=== PATIENT | female | born 1955 | race Caucasian/White ===

== ENCOUNTER 2016-06-23 11:20 | Inpatient (IN) ==
[2016-06-23] MEDS ORDERED: methylPREDNISolone 125 MG/2 ML VIAL IVP ONE (11:26)
[2016-06-23] MEDS ORDERED: Ipratropium/Albuterol Neb 3 ML IH ONE (11:26)
--- NOTE | 2016-06-23 11:31 | Emergency Department Note ---
Disposition Clinical Impression: Hypoxia COPD (chronic obstructive pulmonary disease) Qualifiers: COPD type: COPD with acute exacerbation Qualified Code(s): J44.1 - Chronic obstructive pulmonary disease with (acute) exacerbation Pneumothorax Qualifiers: Pneumothorax type: traumatic Encounter type: initial encounter Qualified Code(s ): S27.0XXA - Traumatic pneumothorax, initial encounter Disposition: Admitted As Inpatient Condition: Fair Time of Disposition: 14:14 SOB HPI - General Chief Complaint: ED Shortness of Breath/Dyspnea Stated Complaint: NANCY Time Seen by Provider: 06/23/16 11:26 Source: EMS Mode of arrival: EMS Limitations: physical limitation Nursing Notes Reviewed: Yes Vital Signs Reviewed: Yes - History of Present Illness 60-year-old with a history COPD He fell several days ago I actually saw her on Wednesday 2 days ago and wanted to admit her for COPD exacerbation but treatment in the ER she did improve and then she refused admission. She has increasing shortness of breath. Initially the patient was placed on CPAP by the squad her pulse ox was in the high 80s. The emergency department she is in the mid 90s on CPAP. Patient was switched to BiPAP on arrival. Pt Subjective Complaint: shortness of breath, cough Onset (ago): day(s) Context: trauma/injury Severity: moderate Consistency/Duration: constant Improves with: other (BiPAP) Worsens with: exertion Known history of: COPD Associated symptoms: Reports: chest pain (Test wall pain) Treatment prior to arrival: other (CPAP) Cough present: Yes - Related Data Home Medications Medication Instructions Recorded Confirmed Albuterol Sulfate [Proventil Hfa] 2 puff IH Q4-6H PRN 05/03/16 06/23/16 Aspirin [Lo-Dose Aspirin EC] 81 mg PO DAILY 05/03/16 06/23/16 CloNIDine HCl [Kapvay] 0.1 mg PO BID 05/03/16 06/23/16 ClonazePAM [Klonopin] 0.5 mg PO BID 05/03/16 06/23/16 Furosemide [Lasix] 20 mg PO DAILY 05/03/16 06/23/16 Ipratropium/Albuterol Neb [Duoneb] 3 ml IH Q6HR 05/03/16 06/23/16 Lisinopril [Zestril] 20 mg PO DAILY 05/03/16 06/23/16 Loratadine [Allergy Relief] 10 mg PO DAILY 05/03/16 06/23/16 Previous Rx's Medication Instructions Recorded Atorvastatin [Lipitor] 80 mg PO HS #30 tablet 05/07/16 Budesonide/Formoterol 80/4.5 2 puff IH BIDR #2 inhaler 05/07/16 [Symbicort 80/4.5] Clopidogrel [Plavix] 75 mg PO DAILY #30 tablet 05/07/16 Metoprolol XL (24 HR) Succ [Toprol 50 mg PO DAILY #30 tab.er.24h 05/07/16 Xl] Doxycycline 100 mg PO BID #20 capsule 06/21/16 PredniSONE 10 mg PO DAILY #21 tablet 06/21/16 Tramadol HCl [Ultram] 50 mg PO TID PRN #20 tab 06/21/16 Allergies Allergy/AdvReac Type Severity Reaction Status Date / Time Penicillins [PCN] Allergy Rash Verified 05/03/16 03:46 Sulfa (Sulfonamide Allergy Rash Verified 05/03/16 03:46 Antibiotics) sulfamethoxazole Allergy Hives Verified 05/03/16 03:46 [From Bactrim] Telithromycin [From Ketek] Allergy Hives Verified 05/03/16 03:46 trimethoprim Allergy Hives Verified 05/03/16 03:46 acetaminophen [From Percocet] AdvReac Nausea Verified 05/03/16 03:46 Oxycodone [From Percocet] AdvReac Nausea Verified 05/03/16 03:46 Needs editing Allergy Chills Uncoded 05/03/16 03:46 Constitutional: Denies: fever, chills, weakness, weight change Eyes: Denies: eye pain, eye discharge, vision change ENT ED: Denies: ear pain, throat pain, dental pain, hearing loss, epistaxis, congestion, dysphagia Cardiovascular: Reports: chest pain (Chest wall pain). Denies: palpitations, dyspnea on exertion, edema, syncope Respiratory: Reports: dyspnea, wheezes. Denies: cough, hemoptysis, stridor Gastrointestinal: Denies: abdominal pain, nausea, vomiting, diarrhea, constipation, hematemesis, melena, hematochezia Genitourinary: Denies: dysuria, frequency, hematuria, discharge Musculoskeletal: Denies: back pain, neck pain, arthralgia, myalgia Integumentary: Denies: rash, abrasion, lesions Neurological: Denies: headache, weakness, numbness, paresthesias, confusion, abnormal gait, vertigo Psychiatric: Denies: anxiety, depression, suicidal thoughts, homicidal thoughts , auditory hallucinations, visual hallucinations Endocrine: Denies: fatigue Hematological/Lymphatic: Denies: easy bleeding, easy bruising Allergic/Immunologic: Denies: facial swelling, urticaria Past Medical History - Past Medical History Medical history: Reports: COPD, hypertension, myocardial infarction Psychiatric history: Reports: anxiety - Social History Smoking Status: Current every day smoker Smokeless Tobacco Status: No Alcohol use: Reports: none Drug use: Reports: none Physical Exam - General Limitations: no limitations General appearance: alert - Head Head exam: atraumatic, normocephalic, normal inspection - Eye Eye exam: Present: normal appearance, PERRL, EOMI - ENT ENT exam: normal exam, normal oropharynx, mucous membranes moist - Neck Neck exam: Present: normal inspection, full ROM, trachea midline - Chest Chest inspection: Present: normal inspection, symmetric chest wall rise, tenderness (Right anterior chest wall) - Respiratory Respiratory exam: Present: respiratory distress, wheezes, prolonged expiratory phase - Cardiovascular Cardiovascular exam: Present: regular rate, normal rhythm, normal heart sounds - Abdominal Exam Abdominal exam: Present: soft, Non-Tender. Absent: tenderness, distention, guarding, rebound, rigidity - Extremities Exam Extremities exam: Present: normal inspection, full ROM. Absent: tenderness, pedal edema - Expanded Lower Extremity Exam Neurovascular/Tendon exam: Absent: motor deficit, sensory deficit, tendon deficit Gait: observed and normal - Back Exam Back exam: Present: normal inspection, full ROM. Absent: tenderness - Neurological Exam Neurological exam: Present: alert, oriented X3 - Psychiatric Psychiatric exam: Present: normal affect, normal mood - Skin Skin exam: Present: warm, dry, intact, normal color Course - Reevaluation(s) Reevaluation #1: The resident placed a chest tube under the direction of Dr. Milla amato. Time: 14:08 - Consultations Consultation #1: Discussed with Dr. Ellis who will follow the chest tube. Time: 12:22 Consultation #2: Discussed with Dr. Shelton, admit. Time: 14:08 Vital Signs Temperature 97.8 F 06/23/16 11:21 Pulse Rate 115 06/23/16 11:21 Respiratory Rate 28 06/23/16 11:21 Blood Pressure 184/135 06/23/16 11:21 O2 Sat by Pulse Oximetry 71 L 06/23/16 11:21 Temperature 97.8 F 06/23/16 11:21 Pulse Rate 74 06/23/16 14:13 Respiratory Rate 18 06/23/16 14:40 Blood Pressure 100/52 06/23/16 14:40 O2 Sat by Pulse Oximetry 100 06/23/16 14:13 Oxygen Delivery Oxygen Delivery Bipap Shortness of Breath/Dyspnea - Lab Data Lab results reviewed: Yes I reviewed the patient's lab results. Result diagrams: 06/23/16 11:52 06/23/16 11:52 Lab Results 06/23/16 06/23/16 06/23/16 Range/Units 11:52 11:52 11:52 WBC 11.1 D (4.3-11.1) K/mcL RBC 4.43 (3.82-4.97) M/mcL Hgb 14.1 D (11.5-15.4) g/dL Hct 43.7 (35.3-44.9) % MCV 98.6 (83.0-100.0) fL MCH 31.8 (28.0-33.3) pg MCHC 32.3 (31.6-35.5) g/dL RDW 13.9 (11.5-14.5) % Plt Count 285 (140-400) K/mcL MPV 9.0 L (9.4-12.4) fL Immature Gran % 0.4 (0-4) % Seg Neutrophils % 85.6 % Lymphocytes % 10.2 % Monocytes % 3.7 % Eosinophils % 0.0 % Basophils % 0.1 % Neutrophils # 9.5 H (1.6-8.9) K/mcL Lymphocytes # 1.1 (0.6-4.6) K/mcL Monocytes # 0.4 (0.0-1.3) K/mcL Eosinophils # 0.0 (0.0-0.6) K/mcL Basophils # 0.0 (0.0-0.2) K/mcL PT (9.4-12.1) Seconds INR APTT (26.0-36.0) Seconds Sodium 134 L (136-145) mEq/L Potassium 4.7 H (3.5-4.5) mEq/L Chloride 96 L (98-109) mEq/L Carbon Dioxide 28 (19-29) mEq/L BUN 11 (7-20) mg/dL Creatinine 0.69 (0.57-1.11) mg/dL Est GFR ( Amer) > 60 (> 60) Est GFR (Non-Af Amer) > 60 (> 60) BUN/Creatinine Ratio 16 (6-26) Glucose 156 H (70-99) mg/dL Calculated Osmolality 281 (280-300) Lactic Acid 1.7 (0.5-2.2) mmol/L Calcium 9.5 (8.6-10.8) mg/dL Troponin I (0-0.03) ng/mL B-Natriuretic Peptide (0-100) pg/mL 06/23/16 06/23/16 06/23/16 Range/Units 11:52 11:52 11:52 WBC (4.3-11.1) K/mcL RBC (3.82-4.97) M/mcL Hgb (11.5-15.4) g/dL Hct (35.3-44.9) % MCV (83.0-100.0) fL MCH (28.0-33.3) pg MCHC (31.6-35.5) g/dL RDW (11.5-14.5) % Plt Count (140-400) K/mcL MPV (9.4-12.4) fL Immature Gran % (0-4) % Seg Neutrophils % % Lymphocytes % % Monocytes % % Eosinophils % % Basophils % % Neutrophils # (1.6-8.9) K/mcL Lymphocytes # (0.6-4.6) K/mcL Monocytes # (0.0-1.3) K/mcL Eosinophils # (0.0-0.6) K/mcL Basophils # (0.0-0.2) K/mcL PT 11.0 (9.4-12.1) Seconds INR 1.0 APTT 26.2 (26.0-36.0) Seconds Sodium (136-145) mEq/L Potassium (3.5-4.5) mEq/L Chloride (98-109) mEq/L Carbon Dioxide (19-29) mEq/L BUN (7-20) mg/dL Creatinine (0.57-1.11) mg/dL Est GFR ( Amer) (> 60) Est GFR (Non-Af Amer) (> 60) BUN/Creatinine Ratio (6-26) Glucose (70-99) mg/dL Calculated Osmolality (280-300) Lactic Acid (0.5-2.2) mmol/L Calcium (8.6-10.8) mg/dL Troponin I 0.01 (0-0.03) ng/mL B-Natriuretic Peptide 78 (0-100) pg/mL Critical Care Time Critical Care Time: Yes Total Critical Care Time: 30 Attestation: The high probability of a clinically significant, sudden or life threatening deterioration of the [respiratory] system(s) required my full and direct attention, intervention and personal management. The aggregate critical care time was [30] minutes. This time is in addition to time spent performing reported procedures but includes the following: [x] Data Review and interpretation [x] Patient assessment and monitoring of vital signs [x] Documentation [x] Medication orders and management
[2016-06-23] MEDS ORDERED: *HR* FentaNYL (PF) 100 MCG/2 ML VIAL IVP ONE (11:58)
[2016-06-23 12:02] LABS: Basophils % 0.1 %; Hematocrit 43.7 % (35.3-44.9); Immature Granulocytes % 0.4 % (0-4); Lymphocytes # 1.1 K/mcL (0.6-4.6); Lymphocytes % 10.2 %; Mean Corpuscular HGB Conc 32.3 g/dL (31.6-35.5); Mean Corpuscular Hemoglobin 31.8 pg (28.0-33.3); Mean Corpuscular Volume 98.6 fL (83.0-100.0); Monocytes # 0.4 K/mcL (0.0-1.3); Monocytes % 3.7 %; Neutrophils # 9.5 K/mcL (1.6-8.9); Platelet Count 285 K/mcL (140-400); Red Blood Count 4.43 M/mcL (3.82-4.97); Red Cell Distribution Width 13.9 % (11.5-14.5); Segmented Neutrophils % 85.6 %
[2016-06-23 12:03] LABS: Hemoglobin 14.1 g/dL (11.5-15.4)
[2016-06-23 12:09] LABS: Activated Partial Thrombo Time 26.2 Seconds (26.0-36.0)
[2016-06-23 12:14] LABS: BUN/Creatinine Ratio 16 (6-26); Blood Urea Nitrogen 11 mg/dL (7-20); Calcium 9.5 mg/dL (8.6-10.8); Carbon Dioxide 28 mEq/L (19-29); Chloride 96 mEq/L (98-109); Glucose 156 mg/dL (70-99); Osmolality,Calculated 281 (280-300); Potassium 4.7 mEq/L (3.5-4.5); Sodium 134 mEq/L (136-145); eGFR For African Americans > 60 (> 60); eGFR For Non-African Americans > 60 (> 60)
--- NOTE | 2016-06-23 12:39 | Emergency Department Note ---
Disposition Clinical Impression: Hypoxia COPD (chronic obstructive pulmonary disease) Qualifiers: COPD type: COPD with acute exacerbation Qualified Code(s): J44.1 - Chronic obstructive pulmonary disease with (acute) exacerbation Disposition: Admitted As Inpatient Condition: Fair Referrals: NO,PCP [Non-Partnered Physician] - Forms: ED Satisfaction Letter General Adult HPI - General Chief complaint: ED Shortness of Breath/Dyspnea Stated complaint: NANCY Time Seen by Provider: 06/23/16 11:26 Source: EMS Mode of arrival: EMS Limitations: no limitations - History of Present Illness Pain Scale: 4 - Related Data Home Medications Medication Instructions Recorded Confirmed Albuterol Sulfate [Proventil Hfa] 2 puff IH Q4-6H PRN 05/03/16 05/03/16 Aspirin [Lo-Dose Aspirin EC] 81 mg PO DAILY 05/03/16 05/03/16 CloNIDine HCl [Kapvay] 0.1 mg PO BID 05/03/16 05/03/16 ClonazePAM [Klonopin] 0.5 mg PO BID 05/03/16 05/03/16 Furosemide [Lasix] 20 mg PO DAILY 05/03/16 05/03/16 Ipratropium/Albuterol Neb [Duoneb] 3 ml IH Q6HR 05/03/16 05/03/16 Lisinopril [Zestril] 20 mg PO DAILY 05/03/16 05/03/16 Loratadine [Allergy Relief] 10 mg PO DAILY 05/03/16 05/03/16 Previous Rx's Medication Instructions Recorded Atorvastatin [Lipitor] 80 mg PO HS #30 tablet 05/07/16 Budesonide/Formoterol 80/4.5 2 puff IH BIDR #2 inhaler 05/07/16 [Symbicort 80/4.5] Clopidogrel [Plavix] 75 mg PO DAILY #30 tablet 05/07/16 GuaiFENesin/Dextromethorphan 5 ml PO Q6HR #1 udc 05/07/16 [Robitussin/Dm] Metoprolol XL (24 HR) Succ [Toprol 50 mg PO DAILY #30 tab.er.24h 05/07/16 Xl] PredniSONE 40 mg PO DAILY #15 tablet 05/07/16 Azithromycin [Zithromax] 250 mg PO DAILY #6 tablet 05/24/16 GuaiFENesin ER [Mucinex] 600 mg PO BID #20 tbbp.12hr 05/24/16 PredniSONE [Prednisone] 60 mg PO DAILY 5 Days 05/24/16 Doxycycline 100 mg PO BID #20 capsule 06/21/16 PredniSONE 10 mg PO DAILY #21 tablet 06/21/16 Tramadol HCl [Ultram] 50 mg PO TID PRN #20 tab 06/21/16 Allergies Allergy/AdvReac Type Severity Reaction Status Date / Time Penicillins [PCN] Allergy Rash Verified 05/03/16 03:46 Sulfa (Sulfonamide Allergy Rash Verified 05/03/16 03:46 Antibiotics) sulfamethoxazole Allergy Hives Verified 05/03/16 03:46 [From Bactrim] Telithromycin [From Ketek] Allergy Hives Verified 05/03/16 03:46 trimethoprim Allergy Hives Verified 05/03/16 03:46 acetaminophen [From Percocet] AdvReac Nausea Verified 05/03/16 03:46 Oxycodone [From Percocet] AdvReac Nausea Verified 05/03/16 03:46 Needs editing Allergy Chills Uncoded 05/03/16 03:46 Constitutional: Denies: fever, chills, weakness, weight change Eyes: Denies: eye pain, eye discharge, vision change ENT ED: Denies: ear pain, throat pain, dental pain, hearing loss, epistaxis, congestion, dysphagia Cardiovascular: Reports: chest pain (Chest wall pain). Denies: palpitations, dyspnea on exertion, edema, syncope Respiratory: Reports: dyspnea, wheezes. Denies: cough, hemoptysis, stridor Gastrointestinal: Denies: abdominal pain, nausea, vomiting, diarrhea, constipation, hematemesis, melena, hematochezia Genitourinary: Denies: dysuria, frequency, hematuria, discharge Musculoskeletal: Denies: back pain, neck pain, arthralgia, myalgia Integumentary: Denies: rash, abrasion, lesions Neurological: Denies: headache, weakness, numbness, paresthesias, confusion, abnormal gait, vertigo Psychiatric: Denies: anxiety, depression, suicidal thoughts, homicidal thoughts , auditory hallucinations, visual hallucinations Endocrine: Denies: fatigue Hematological/Lymphatic: Denies: easy bleeding, easy bruising Allergic/Immunologic: Denies: facial swelling, urticaria Past Medical History - Past Medical History Medical history: Reports: COPD, hypertension, myocardial infarction Psychiatric history: Reports: anxiety - Social History Smoking Status: Current every day smoker Smokeless Tobacco Status: No Alcohol use: Reports: none Drug use: Reports: none Physical Exam - General Limitations: no limitations General appearance: alert Course Vital Signs Temperature 97.8 F 06/23/16 11:21 Pulse Rate 115 06/23/16 11:21 Respiratory Rate 28 06/23/16 11:21 Blood Pressure 184/135 06/23/16 11:21 O2 Sat by Pulse Oximetry 71 L 06/23/16 11:21 Temperature 97.8 F 06/23/16 11:21 Pulse Rate 77 06/23/16 13:09 Respiratory Rate 18 06/23/16 13:09 Blood Pressure 99/55 06/23/16 13:09 O2 Sat by Pulse Oximetry 100 06/23/16 13:09 Oxygen Delivery Oxygen Delivery Bipap Procedures - Chest Tube Chest Tube 1 Chest Tube Location: 8fr chest tube Size of Tube (cm): 8 (8fr) Chest Tube Prep: other Local Anesthetic: lidocaine 1% Amount of Anesthesia Used (mL): 10 Incision Made With: #11 blade Post Procedure: sutured to skin, sterile dressing applied Tube Drainage: none Post Procedure CXR?: Yes Patient Tolerated Procedure: Yes Progress: Chest tube placed by Dr. Malin, supervision Dr. Reed, please Dr. Boyer's note for history and physical assessment plan and decision making for patient, patient underwent procedure well no complications resolution of PTX after CT, patient's, written consent was obtained prior to procedure, please see procedure note. Medical Decision Making - Lab Data Result diagrams: 06/23/16 11:52 06/23/16 11:52 Lab Results 06/23/16 06/23/16 06/23/16 Range/Units 11:52 11:52 11:52 WBC 11.1 D (4.3-11.1) K/mcL RBC 4.43 (3.82-4.97) M/mcL Hgb 14.1 D (11.5-15.4) g/dL Hct 43.7 (35.3-44.9) % MCV 98.6 (83.0-100.0) fL MCH 31.8 (28.0-33.3) pg MCHC 32.3 (31.6-35.5) g/dL RDW 13.9 (11.5-14.5) % Plt Count 285 (140-400) K/mcL MPV 9.0 L (9.4-12.4) fL Immature Gran % 0.4 (0-4) % Seg Neutrophils % 85.6 % Lymphocytes % 10.2 % Monocytes % 3.7 % Eosinophils % 0.0 % Basophils % 0.1 % Neutrophils # 9.5 H (1.6-8.9) K/mcL Lymphocytes # 1.1 (0.6-4.6) K/mcL Monocytes # 0.4 (0.0-1.3) K/mcL Eosinophils # 0.0 (0.0-0.6) K/mcL Basophils # 0.0 (0.0-0.2) K/mcL PT (9.4-12.1) Seconds INR APTT (26.0-36.0) Seconds Sodium 134 L (136-145) mEq/L Potassium 4.7 H (3.5-4.5) mEq/L Chloride 96 L (98-109) mEq/L Carbon Dioxide 28 (19-29) mEq/L BUN 11 (7-20) mg/dL Creatinine 0.69 (0.57-1.11) mg/dL Est GFR ( Amer) > 60 (> 60) Est GFR (Non-Af Amer) > 60 (> 60) BUN/Creatinine Ratio 16 (6-26) Glucose 156 H (70-99) mg/dL Calculated Osmolality 281 (280-300) Lactic Acid 1.7 (0.5-2.2) mmol/L Calcium 9.5 (8.6-10.8) mg/dL Troponin I (0-0.03) ng/mL B-Natriuretic Peptide (0-100) pg/mL 06/23/16 06/23/16 06/23/16 Range/Units 11:52 11:52 11:52 WBC (4.3-11.1) K/mcL RBC (3.82-4.97) M/mcL Hgb (11.5-15.4) g/dL Hct (35.3-44.9) % MCV (83.0-100.0) fL MCH (28.0-33.3) pg MCHC (31.6-35.5) g/dL RDW (11.5-14.5) % Plt Count (140-400) K/mcL MPV (9.4-12.4) fL Immature Gran % (0-4) % Seg Neutrophils % % Lymphocytes % % Monocytes % % Eosinophils % % Basophils % % Neutrophils # (1.6-8.9) K/mcL Lymphocytes # (0.6-4.6) K/mcL Monocytes # (0.0-1.3) K/mcL Eosinophils # (0.0-0.6) K/mcL Basophils # (0.0-0.2) K/mcL PT 11.0 (9.4-12.1) Seconds INR 1.0 APTT 26.2 (26.0-36.0) Seconds Sodium (136-145) mEq/L Potassium (3.5-4.5) mEq/L Chloride (98-109) mEq/L Carbon Dioxide (19-29) mEq/L BUN (7-20) mg/dL Creatinine (0.57-1.11) mg/dL Est GFR ( Amer) (> 60) Est GFR (Non-Af Amer) (> 60) BUN/Creatinine Ratio (6-26) Glucose (70-99) mg/dL Calculated Osmolality (280-300) Lactic Acid (0.5-2.2) mmol/L Calcium (8.6-10.8) mg/dL Troponin I 0.01 (0-0.03) ng/mL B-Natriuretic Peptide 78 (0-100) pg/mL
[2016-06-23] MEDS ORDERED: Naloxone 0.4 MG/ML INJ IVP PRN (13:22)
[2016-06-23] MEDS ORDERED: Ondansetron 4 MG/2 ML VIAL IVP PRN (13:27)
--- NOTE | 2016-06-23 13:44 | Internal Med History&Physical ---
Date of Encounter: 06/23/16 Time of Encounter: 12:45 Assessment and Plan (1) Pneumothorax on right Current visit: Yes Status: Acute Secondary to right lateral rib fracture s/p mechanical fall Chest tube placed by ER physician Dr. Jillian Ellis to follow up (informed by the ER physician) repeat CXR noted: right pneumothorax reduced closely monitor respiratory status O2 supplementation as needed pain control PT/OT once able to participate (2) Acute exacerbation of chronic obstructive airways disease Current visit: No Status: Acute -Continue steroids and bronchodilators -continue Levaquin -titrate steroid therapy as patient clinically improves -monitor O2 sat (goal sat: 89-92%) -continue bipap support as needed -O2 supplementation as needed -GI ppx for high dose steroid therapy (3) Hyperglycemia Current visit: Yes Status: Acute Likely secondary to steroid use No reported or documented history of DM, f/u HbA1C will closely monitor (4) Hypertension Current visit: Yes Status: Acute BP within acceptable limits Hold Metoprolol at this time due to acute COPD exacerbation with active wheezing continue lisinopril and clonidine as per her home medications closely monitor BP Qualifiers: Hypertension type: essential hypertension Qualified Code(s): I10 - Essential (primary) hypertension (5) Anxiety Current visit: Yes Status: Acute continue home medications (6) DVT prophylaxis Current visit: Yes Status: Acute Heparin SQ (7) Hyperkalemia Current visit: Yes Status: Acute Mild hyperkalemia continue to closely monitor electrolytes (8) Cigarette smoker Current visit: Yes Status: Acute Extensinve Smoking cessation counseling provided patient not ready to quit at this time Refused nicotine replacement therapy Internal Medicine - H&P: HPI Chief complaint: shortness of breath Admitted From: Home Plans for Post Hospital Care: Home History of present illness: Ms. Phoenix is a 60 year old female with PMH of COPD on home oxygen, hypertension, anxiety who presented to the ER for evaluation of worsening shortness of breath. Patient was seen in the ER on Jun 21 s/p fall and for shortness of breath and refused admission for COPD exacerbation at that time. She was discharged with PO steroids and oral antibiotics. However today patient reports of worsening shortness of breath due to which she called EMS. She states she sustained a mechanical fall (tripped down the stairs) hurting her right lateral chest wall. Upon arrival to the ER, patient was noted to have a right pneumothorax secondary to the right lateral rib fracture and a emergent chest tube was placed. Patient's respiratory status improved after chest tube placement and bipap support. During my evaluation, she reported of feeling better and saturating well on bipap. She reports of being an every day smoker and due to passing of her dog, she is not ready to quit at this time. At this time she denies any headache, chest pain, cough, abd pain, n/v, dysuria, diarrhea, or constipation, fever, or chills. She reports of being compliant with her home medications. 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 Denies any alcohol or ilicit drug use Meds given in the ER: Methylprednisolone 125mg IV, Duoneb, Fentanyl 50 mcg IV, Lasix 40mg IV Past Med Surg Social Fam HX - Past Medical History Medical history: COPD, hypertension, myocardial infarction Psychiatric history: anxiety - Social History Smoking Status: Current every day smoker Smokeless Tobacco Status: No Alcohol use: none Drug use: none Internal Medicine - H&P: Meds Albuterol Sulfate [Proventil Hfa] 2 puff IH Q4-6H PRN 05/03/16 [History] Aspirin [Lo-Dose Aspirin EC] 81 mg PO DAILY 05/03/16 [History] CloNIDine HCl [Kapvay] 0.1 mg PO BID 05/03/16 [History] ClonazePAM [Klonopin] 0.5 mg PO BID 05/03/16 [History] Furosemide [Lasix] 20 mg PO DAILY 05/03/16 [History] Ipratropium/Albuterol Neb [Duoneb] 3 ml IH Q6HR 05/03/16 [History] Lisinopril [Zestril] 20 mg PO DAILY 05/03/16 [History] Loratadine [Allergy Relief] 10 mg PO DAILY 05/03/16 [History] Atorvastatin [Lipitor] 80 mg PO HS #30 tablet 05/07/16 [Rx] Budesonide/Formoterol 80/4.5 [Symbicort 80/4.5] 2 puff IH BIDR #2 inhaler 05/07 [Rx] Clopidogrel [Plavix] 75 mg PO DAILY #30 tablet 05/07/16 [Rx] GuaiFENesin/Dextromethorphan [Robitussin/Dm] 5 ml PO Q6HR #1 udc 05/07/16 [Rx] Metoprolol XL (24 HR) Succ [Toprol Xl] 50 mg PO DAILY #30 tab.er.24h 05/07/16 [ Rx] PredniSONE 40 mg PO DAILY #15 tablet 05/07/16 [Rx] Azithromycin [Zithromax] 250 mg PO DAILY #6 tablet 05/24/16 [Rx] GuaiFENesin ER [Mucinex] 600 mg PO BID #20 tbbp.12hr 05/24/16 [Rx] PredniSONE [Prednisone] 60 mg PO DAILY 5 Days 05/24/16 [Rx] Doxycycline 100 mg PO BID #20 capsule 06/21/16 [Rx] PredniSONE 10 mg PO DAILY #21 tablet 06/21/16 [Rx] Tramadol HCl [Ultram] 50 mg PO TID PRN #20 tab 06/21/16 [Rx] Allergies Penicillins [PCN] Allergy (Verified 05/03/16 03:46) Rash Sulfa (Sulfonamide Antibiotics) Allergy (Verified 05/03/16 03:46) Rash sulfamethoxazole [From Bactrim] Allergy (Verified 05/03/16 03:46) Hives Telithromycin [From Ketek] Allergy (Verified 05/03/16 03:46) Hives trimethoprim Allergy (Verified 05/03/16 03:46) Hives acetaminophen [From Percocet] Adverse Reaction (Verified 05/03/16 03:46) Nausea Oxycodone [From Percocet] Adverse Reaction (Verified 05/03/16 03:46) Nausea Needs editing Allergy (Uncoded 05/03/16 03:46) Chills All Systems PM: A 10-system review of systems was performed and is negative for pertinent findings except as documented above in the HPI. - Constitutional Constitutional: as per HPI - Constitutional Vitals: Temp Pulse Resp BP Pulse Ox 97.8 F 77 18 99/55 100 06/23/16 11:21 06/23/16 13:09 06/23/16 13:09 06/23/16 13:09 06/23/16 13:09 General appearance: Present: cooperative, A&O X 3, no acute distress, answers questions appropriately - Head Head exam: Present: atraumatic, normocephalic - Eye Eye exam: Present: normal appearance, conjuntiva pink, sclera anicteric - Respiratory Respiratory exam: Absent: respiratory distress (decreased breath sounds bilaterally, mild expiratory wheezing noted on bilateral lower bases, right lateral chest wall-chest tube in place) - Cardiovascular Cardiovascular exam: Present: RRR, +S1, +S2 - GI/Abdominal GI/Abdominal exam: Present: normal bowel sounds, soft, no peritoneal signs. Absent: distended, tenderness - Extremities Exam Extremities exam: Present: warm, radial pulses palpable and symetrical. Absent : calf tenderness, cyanotic, pedal edema - Neurological Exam Neurological exam: Present: alert, oriented X3, no focal deficits - Psychiatric Psychiatric exam: Present: normal affect, normal mood Internal Med - H&P Results - Labs CBC & Chem 7: 06/23/16 11:52 06/23/16 11:52 Labs: Short CBC 06/23/16 Range/Units 11:52 WBC 11.1 D (4.3-11.1) K/mcL Hgb 14.1 D (11.5-15.4) g/dL Hct 43.7 (35.3-44.9) % Plt Count 285 (140-400) K/mcL Neutrophils # 9.5 H (1.6-8.9) K/mcL BMP 06/23/16 11:52 Sodium 134 L Potassium 4.7 H Chloride 96 L Carbon Dioxide 28 BUN 11 Creatinine 0.69 Glucose 156 H Calcium 9.5 Cardiac Enzymes 06/23/16 Range/Units 11:52 Troponin I 0.01 (0-0.03) ng/mL - Impressions ITS Impressions Chest X-Ray 06/23/16 11:26 IMPRESSION: Right pneumothorax new from the prior study. Presumably this is secondary to known rib fractures. Findings were discussed with Omar Boyer at 11:47 am on 06/23/2016. D/ / Ernesto Moreno MD / Ernesto Moreno MD Interpreting Provider: Ernesto Moreno MD Chest X-Ray 06/23/16 12:26 IMPRESSION: Right pneumothorax is reduced to small, following placement of the right chest tube. Bibasilar atelectasis. D/ / Cheikh Burgos MD / Cheikh Burgos MD Interpreting Provider: Cheikh Burgos MD
[2016-06-23] MEDS ORDERED: Ipratropium/Albuterol Neb 3 ML IH SCH (13:45)
[2016-06-23] MEDS: Levofloxacin 750 MG/150 ML 750 MG/150 ML BAG IVPB SCH (14:08)
[2016-06-23] MEDS: Ipratropium/Albuterol Neb 3 ML IH SCH ×3 (15:28→23:21)
--- NOTE | 2016-06-23 17:00 | Cardiothoracic Consult Note ---
Date of Encounter: 06/23/16 Time of Encounter: 17:00 Assessment and Plan (1) Pneumothorax Current Visit: Yes Status: Acute The patient is a 60-year-old hypertensive lady with COPD who was evaluated at [facility] emergency department today with complaints of increasing shortness of breath and dyspnea exertion after sustaining a fall down the stairs 2 days ago. During this evaluation patient was found to have a right pneumothorax and a chest tube inserted in the emergency department. The chest tube resolve the pneumothorax, and currently the patient has no air leak. I have been asked to manage the chest tube. Chest tube should remain on -20 cm water suction and the chest x-ray repeated in the morning. If the pneumothorax has resolved and the patient has no air leak the chest tube was placed to waterseal tomorrow. The assessment and plan as outlined above was discussed with the patient and/or family members who expressed understanding and agreement. All questions were answered. Qualifiers: Pneumothorax type: traumatic Encounter type: initial encounter Qualified Code(s): S27.0XXA - Traumatic pneumothorax, initial encounter - History of Present Illness Consult date: 06/23/16 Requesting physician: Jennifer Foster Consult reason: Chest tube management. Chief complaint: Right traumatic pneumothorax. History of present illness: Ms. Phoenix is a 60 year old hypertensive lady with COPD who suffered a fall on Tuesday, June 21, 2016. At that time the patient states that she tripped down the stairs and landed on her right lateral chest sustaining some bruising. The patient was evaluated at [facility] emergency department and found to have decreased oxygen saturations due to exacerbation of COPD. A chest x-ray performed during the evaluation showed no evidence of pneumothorax. The patient was recommended for admission to treat her COPD exacerbation; however, she refused. During the ensuing 48 hours the patient has had progressive shortness of breath and dyspnea on exertion. She was reevaluated and [facility] emergency department today and found to have a right pneumothorax. A chest tube was inserted which improved versus respiratory status somewhat. I have been asked to evaluate the patient for chest tube management. Past Med Surg Social Fam HX - Past Medical History Medical history: COPD, hypertension, myocardial infarction Psychiatric history: anxiety - Past Surgical History Surgical History: cataract (Bilateral excision with lens implantation.), cholecystectomy - Social History Smoking Status: Current every day smoker Packs per day: 1/2 ppd X 45 years Smokeless Tobacco Status: No Alcohol use: none Drug use: none Occupational status: retired Current living situation: Home - Independent Activity Level: Independent ambulation Recent Out of Country Travel Within the Last 8 Weeks: No Exposure or Possible Exposure to Illness During Travel: No Medications and Allergies Albuterol Sulfate [Proventil Hfa] 2 puff IH Q4-6H PRN 05/03/16 [History] Aspirin [Lo-Dose Aspirin EC] 81 mg PO DAILY 05/03/16 [History] CloNIDine HCl [Kapvay] 0.1 mg PO BID 05/03/16 [History] ClonazePAM [Klonopin] 0.5 mg PO BID 05/03/16 [History] Furosemide [Lasix] 20 mg PO DAILY 05/03/16 [History] Ipratropium/Albuterol Neb [Duoneb] 3 ml IH Q6HR 05/03/16 [History] Lisinopril [Zestril] 20 mg PO DAILY 05/03/16 [History] Loratadine [Allergy Relief] 10 mg PO DAILY 05/03/16 [History] Atorvastatin [Lipitor] 80 mg PO HS #30 tablet 05/07/16 [Rx] Budesonide/Formoterol 80/4.5 [Symbicort 80/4.5] 2 puff IH BIDR #2 inhaler 05/07 [Rx] Clopidogrel [Plavix] 75 mg PO DAILY #30 tablet 05/07/16 [Rx] Metoprolol XL (24 HR) Succ [Toprol Xl] 50 mg PO DAILY #30 tab.er.24h 05/07/16 [ Rx] Doxycycline 100 mg PO BID #20 capsule 06/21/16 [Rx] PredniSONE 10 mg PO DAILY #21 tablet 06/21/16 [Rx] Tramadol HCl [Ultram] 50 mg PO TID PRN #20 tab 06/21/16 [Rx] Allergies Penicillins [PCN] Allergy (Verified 05/03/16 03:46) Rash Sulfa (Sulfonamide Antibiotics) Allergy (Verified 05/03/16 03:46) Rash sulfamethoxazole [From Bactrim] Allergy (Verified 05/03/16 03:46) Hives Telithromycin [From Ketek] Allergy (Verified 05/03/16 03:46) Hives trimethoprim Allergy (Verified 05/03/16 03:46) Hives acetaminophen [From Percocet] Adverse Reaction (Verified 05/03/16 03:46) Nausea Oxycodone [From Percocet] Adverse Reaction (Verified 05/03/16 03:46) Nausea Needs editing Allergy (Uncoded 05/03/16 03:46) Chills All Systems Review: A 10-system review of systems was performed and is negative for pertinent findings except as documented above in the HPI. Physical Examination Vital Signs, Last 4 Hours Temp Pulse Resp BP Pulse Ox 06/23/16 15:28 20 90 L 06/23/16 15:06 97.1 F L 81 18 102/59 100 06/23/16 14:40 18 100/52 General: Conversant, No Apparent Distress HEENT: Atraumatic, Normocephaly, Trachea midline Neck: No JVD, Normal carotid pulses Lungs: Other (Wheezes or rhonchi bilaterally.) Neuro: Alert and responsive, No focal deficits noted Abdomen: Soft, Non-tender Skin: No rashes noted on visualized skin Extremities: No Clubbing, No Cyanosis, No Edema Results 06/23/16 11:52 06/23/16 11:52 - Imaging Chest Xray: image reviewed (Resolved right pneumothorax after chest tube insertion.) Consult Discharge Plan - Plan Referrals: Lloyd Harrell MD [Primary Care Provider] -
[2016-06-23 17:34] LABS: ABG HCO3 36.5 mEQ/L (21-27); ABG PH 7.29 pH Units (7.32-7.45); ABG PO2 220 mmHg (85-104)
[2016-06-23 17:35] LABS: ABG Base Excess 7.1 mEq/L (-2.0 to 3.0); ABG Oxygen Saturation 100 % (95-98); ABG TCO2 38.8 mEq/L (20-26); Blood Gas FiO2 100 %
[2016-06-23 17:36] LABS: ABG PCO2 76 mmHg (35-45)
[2016-06-23] MEDS: Budesonide/Formoterol 80/4.5 MDI IH SCH (19:35)
[2016-06-23] MEDS: cloNIDine HCl 0.1 MG TABLET PO SCH (21:36)
[2016-06-23] MEDS: clonazePAM 0.5 MG TABLET PO SCH (21:36)
[2016-06-23] MEDS: *HR* Heparin 5,000 UNIT/ML VIAL SQ SCH (21:36)
[2016-06-24] MEDS: Ipratropium/Albuterol Neb 3 ML IH SCH ×6 (03:29→23:36)
[2016-06-24 05:51] LABS: Hematocrit 40.8 % (35.3-44.9); Hemoglobin 12.8 g/dL (11.5-15.4); Immature Granulocytes % 0.2 % (0-4); Lymphocytes # 1.5 K/mcL (0.6-4.6); Lymphocytes % 25.9 %; Mean Corpuscular HGB Conc 31.4 g/dL (31.6-35.5); Mean Corpuscular Hemoglobin 31.7 pg (28.0-33.3); Mean Platelet Volume 9.5 fL (9.4-12.4); Monocytes # 0.6 K/mcL (0.0-1.3); Monocytes % 10.6 %; Neutrophils # 3.5 K/mcL (1.6-8.9); Platelet Count 214 K/mcL (140-400); Red Blood Count 4.04 M/mcL (3.82-4.97); Red Cell Distribution Width 13.8 % (11.5-14.5); Segmented Neutrophils % 63.3 %
[2016-06-24 05:59] LABS: BUN/Creatinine Ratio 20 (6-26); Blood Urea Nitrogen 11 mg/dL (7-20); Calcium 8.8 mg/dL (8.6-10.8); Carbon Dioxide 27 mEq/L (19-29); Chloride 99 mEq/L (98-109); Glucose 104 mg/dL (70-99); Osmolality,Calculated 276 (280-300); Phosphorous 2.8 mg/dL (2.3-4.7); Potassium 4.9 mEq/L (3.5-4.5); Sodium 133 mEq/L (136-145); eGFR For African Americans > 60 (> 60); eGFR For Non-African Americans > 60 (> 60)
[2016-06-24 06:00] LABS: Hemoglobin A1C 5.8 %
[2016-06-24] MEDS: MethylPREDNISolone 40 MG/ML VIAL IVP SCH ×2 (06:03→17:54)
[2016-06-24] MEDS: traMADol 50 MG TABLET PO PRN ×2 (07:05→22:00)
[2016-06-24] MEDS: Ketorolac 15 MG/ML VIAL IVP PRN (07:15)
--- NOTE | 2016-06-24 07:43 | Cardiothoracic Progress Note ---
Date of Encounter: 06/24/16 Time of Encounter: 07:41 - Assessment and plan (1) Pneumothorax Current Visit: Yes Status: Acute The patient is resting comfortably in her hospital bed; however, she has wheezes and rhonchi bilaterally from her COPD exacerbation. The chest tube has no air leak. The chest tube should remain to suction today. The assessment and plan as outlined above was discussed with the patient and/or family members who expressed understanding and agreement. All questions were answered. Qualifiers: Pneumothorax type: traumatic Encounter type: initial encounter Qualified Code(s): S27.0XXA - Traumatic pneumothorax, initial encounter - Subjective Interval history: The patient is resting comfortably in her hospital bed. She has no complaints. Vital Signs, Last 4 Hours Temp Pulse Resp BP Pulse Ox 06/24/16 06:49 97.6 F 89 20 144/76 97 06/24/16 04:00 96.4 F L 70 16 111/61 95 Oxgyen Flow Rate Oxygen Flow Rate (LPM) 9 Clinical Data, last 8 Hours Output, Urine Amount 250 Output, Urine Amount 0 Weight 06/22/16 06/23/16 06/24/16 23:59 23:59 23:59 Weight 52.9 kg - Physical Examination General: Conversant, No Apparent Distress Neck: No JVD, Normal carotid pulses Cardiac: Reg Rate and Rhythm, Normal S1 and S2, No Murmur Incision: No signs of infection, Dry/intact dressing Chest tubes: Minimal drainage, Other (No air leak.) Lungs: Other (Wheezes and rhonchi bilaterally.) Neuro: Alert and responsive, No focal deficits noted Vascular: Normal capillary refill Extremities: No Clubbing, No Cyanosis, No Edema - Labs 06/24/16 04:52 06/24/16 04:52 Lab Results, Last 24 hours 06/24/16 06/24/16 04:52 04:52 WBC 5.6 Hgb 12.8 Hct 40.8 Plt Count 214 Sodium 133 L Potassium 4.9 H Chloride 99 Carbon Dioxide 27 BUN 11 Creatinine 0.54 L Glucose 104 H Calcium 8.8 Magnesium 2.0 - Imaging Chest Xray: image reviewed (Possible small right lateral pneumothorax.) Consult Discharge Plan - Plan Referrals: Lloyd Harrell MD [Primary Care Provider] -
[2016-06-24] MEDS: Budesonide/Formoterol 80/4.5 MDI IH SCH ×2 (07:47→19:23)
[2016-06-24] MEDS: Aspirin Enteric Coated 81 MG Tablet PO SCH (08:44)
[2016-06-24] MEDS: Levofloxacin 750 MG/150 ML 750 MG/150 ML BAG IVPB SCH (08:44)
[2016-06-24] MEDS: Loratadine 10 MG TABLET PO SCH (08:44)
[2016-06-24] MEDS: cloNIDine HCl 0.1 MG TABLET PO SCH ×2 (08:44→21:54)
[2016-06-24] MEDS: *HR* Heparin 5,000 UNIT/ML VIAL SQ SCH ×2 (08:44→21:54)
[2016-06-24] MEDS: clonazePAM 0.5 MG TABLET PO SCH ×2 (08:44→21:54)
[2016-06-24] MEDS: Lisinopril 20 MG TABLET PO SCH (08:44)
--- NOTE | 2016-06-24 09:57 | Electrocardiograph Report ---
[facility] Test Date: 2016-06-23 Pat Name: Ladonna Phoenix Department: 105 Room: 2NE21 Gender: F [employer]: MSC : [id number] Requested By: Omar Boyer Order Number: [id number] Reading MD: Ranjeet Craft MD Measurements Intervals Sutter Rate: 88 P: 84 LA: 187 QRS: 55 QRSD: 94 T: 67 QT: 342 QTc: 388 Interpretive Statements SINUS RHYTHM LOW QRS VOLTAGE IN EXTREMITY LEADS POOR R WAVE PROGRESSION Electronically Signed On 06-24-16 09:56:56 EST by Ranjeet Craft MD
--- NOTE | 2016-06-24 13:58 | Internal Med Progress Note ---
<Robe Willis - Last Filed: 06/24/16 14:58> Date of Encounter: 06/24/16 Time of Encounter: 09:00 - Assessment and plan (1) Pneumothorax on right Current Visit: Yes Status: Acute Assessment and plan: Patients hemithorax is improving on CXR there is a mild loculated lateral punomothorax still. Apical pneumothorax has resolved. Continue chest tube for on additional day. Continues to have R. thoracic pain. Continue pain medications. Patient is followed by Cardiothoracic surgery. CBC and BMP in morning. (2) Acute exacerbation of chronic obstructive airways disease Current Visit: No Status: Acute Assessment and plan: Improved SOB. Patient is on 7L high flow O2 and saturating >97 percent. She is on 2L at home for COPD. Will decrease O2 supplementation and keep O2 saturation above 90 percent. Continue levaquin, steroids, nebulizer. (3) DVT prophylaxis Current Visit: Yes Status: Acute Assessment and plan: Heparin SQ. (4) Hyperglycemia Current Visit: Yes Status: Acute Assessment and plan: Resolved. 2nd to starting steroids. (5) Hyperkalemia Current Visit: Yes Status: Acute Assessment and plan: Trending Up. Will monitor. Give 500cc bolus 0.9% NS at 50cc an hour. BMP in morning. (6) Hypertension Current Visit: Yes Status: Acute Assessment and plan: Controlled. Continue home medications. Qualifiers: Hypertension type: essential hypertension Qualified Code(s): I10 - Essential (primary) hypertension - Subjective Interval history: Patient reports continued abdominal pain on right thorax. She denies sob. There were no overnight issues. Denies cp, palpitations. - Constitutional Vitals: Temp Pulse Resp BP Pulse Ox 97.6 F 83 16 110/58 95 06/24/16 11:08 06/24/16 11:08 06/24/16 11:08 06/24/16 11:08 06/24/16 11:08 General appearance: Present: cooperative, A&O X 3, no acute distress, answers questions appropriately - Neck Neck exam general surgery: Present: supple, trachea midline. Absent: lymphadenopathy - Respiratory Respiratory exam: Present: chest wall tenderness (right chest at site of chest tube insertion. ), CTAB. Absent: accessory muscle use, rales, rhonchi, wheezes - Cardiovascular Cardiovascular exam: Present: RRR, +S1, +S2. Absent: diastolic murmur, gallop, rubs, systolic murmur - GI/Abdominal GI/Abdominal exam: Present: normal bowel sounds, soft, no peritoneal signs. Absent: distended, tenderness - Extremities Exam Extremities exam: Present: warm, radial pulses palpable and symetrical. Absent : calf tenderness, cyanotic, pedal edema Internal Medicine: Result - Labs CBC & Chem 7: 06/24/16 04:52 06/24/16 04:52 Labs: Short CBC 06/24/16 Range/Units 04:52 WBC 5.6 (4.3-11.1) K/mcL Hgb 12.8 (11.5-15.4) g/dL Hct 40.8 (35.3-44.9) % Plt Count 214 (140-400) K/mcL Neutrophils # 3.5 (1.6-8.9) K/mcL BMP 06/24/16 04:52 Sodium 133 L Potassium 4.9 H Chloride 99 Carbon Dioxide 27 BUN 11 Creatinine 0.54 L Glucose 104 H Calcium 8.8 - ABG Interpretation ABG results: ABG ABG pH 7.29 pH Units (7.32-7.45) L 06/23/16 14:05 ABG pCO2 76 mmHg (35-45) H* 06/23/16 14:05 ABG pO2 220 mmHg (85-104) H 06/23/16 14:05 ABG O2 Saturation 100 % (95-98) H 06/23/16 14:05 PT/INR, D-dimer PT 11.0 Seconds (9.4-12.1) 06/23/16 11:52 - Impressions Impressions Chest X-Ray 06/24/16 06:00 IMPRESSION: 1. Stable right hemithorax chest tube with questionable right lateral costophrenic angle loculated mild pneumothorax. 2. COPD with no acute consolidation. D/ / 06/24/2016 07:18:56 Silvano Lee MD / [email or web address] Interpreting Provider: Silvano Lee MD Consult Discharge Plan - Plan Referrals: Lloyd Harrell MD [Primary Care Provider] - <Cayden Kessler P - Last Filed: 06/24/16 18:41> Date of Encounter: 06/24/16 - Constitutional Vitals: Temp Pulse Resp BP Pulse Ox 97.7 F 78 18 119/59 98 06/24/16 15:28 06/24/16 15:28 06/24/16 15:28 06/24/16 15:28 06/24/16 15:28 Internal Medicine: Result - Labs CBC & Chem 7: 06/24/16 04:52 06/24/16 04:52 Labs: Short CBC 06/24/16 Range/Units 04:52 WBC 5.6 (4.3-11.1) K/mcL Hgb 12.8 (11.5-15.4) g/dL Hct 40.8 (35.3-44.9) % Plt Count 214 (140-400) K/mcL Neutrophils # 3.5 (1.6-8.9) K/mcL BMP 06/24/16 04:52 Sodium 133 L Potassium 4.9 H Chloride 99 Carbon Dioxide 27 BUN 11 Creatinine 0.54 L Glucose 104 H Calcium 8.8 - ABG Interpretation ABG results: ABG ABG pH 7.29 pH Units (7.32-7.45) L 06/23/16 14:05 ABG pCO2 76 mmHg (35-45) H* 06/23/16 14:05 ABG pO2 220 mmHg (85-104) H 06/23/16 14:05 ABG O2 Saturation 100 % (95-98) H 06/23/16 14:05 PT/INR, D-dimer PT 11.0 Seconds (9.4-12.1) 06/23/16 11:52 - Impressions Impressions Chest X-Ray 06/24/16 06:00 IMPRESSION: 1. Stable right hemithorax chest tube with questionable right lateral costophrenic angle loculated mild pneumothorax. 2. COPD with no acute consolidation. D/ / 06/24/2016 07:18:56 Silvano Lee MD / [email or web address] Interpreting Provider: Silvano Lee MD - Attending Attestation I examined this patient and my medical decision-making was reviewed with the MANAGER HIGHWAY/PA/Advanced Practice Nurse/Resident Physician. I agree with the documented findings, disposition and treatment plan as described except to the extent set forth below.
[2016-06-24] MEDS ORDERED: 0.9 % Sodium Chloride 500 ML IVC ONE (15:14)
[2016-06-25] MEDS: MethylPREDNISolone 40 MG/ML VIAL IVP SCH ×2 (04:58→17:13)
[2016-06-25] MEDS: Ipratropium/Albuterol Neb 3 ML IH SCH ×6 (05:02→23:47)
[2016-06-25 05:56] LABS: Hematocrit 41.8 % (35.3-44.9); Hemoglobin 13.3 g/dL (11.5-15.4); Immature Granulocytes % 0.3 % (0-4); Lymphocytes # 1.2 K/mcL (0.6-4.6); Lymphocytes % 18.3 %; Mean Corpuscular HGB Conc 31.8 g/dL (31.6-35.5); Mean Corpuscular Hemoglobin 30.9 pg (28.0-33.3); Mean Corpuscular Volume 97.2 fL (83.0-100.0); Mean Platelet Volume 9.1 fL (9.4-12.4); Monocytes # 0.4 K/mcL (0.0-1.3); Monocytes % 5.4 %; Neutrophils # 5.1 K/mcL (1.6-8.9); Platelet Count 275 K/mcL (140-400); Red Cell Distribution Width 13.6 % (11.5-14.5)
[2016-06-25 06:09] LABS: BUN/Creatinine Ratio 18 (6-26); Blood Urea Nitrogen 11 mg/dL (7-20); Calcium 9.3 mg/dL (8.6-10.8); Carbon Dioxide 30 mEq/L (19-29); Chloride 97 mEq/L (98-109); Glucose 110 mg/dL (70-99); Osmolality,Calculated 282 (280-300); Potassium 4.6 mEq/L (3.5-4.5); Sodium 136 mEq/L (136-145); eGFR For African Americans > 60 (> 60); eGFR For Non-African Americans > 60 (> 60)
[2016-06-25] MEDS: Budesonide/Formoterol 80/4.5 MDI IH SCH ×2 (07:30→19:35)
[2016-06-25] MEDS: Loratadine 10 MG TABLET PO SCH (08:33)
[2016-06-25] MEDS: Ketorolac 15 MG/ML VIAL IVP PRN (08:33)
[2016-06-25] MEDS: *HR* Heparin 5,000 UNIT/ML VIAL SQ SCH ×2 (08:33→20:13)
[2016-06-25] MEDS: clonazePAM 0.5 MG TABLET PO SCH ×2 (08:34→20:14)
[2016-06-25] MEDS: Lisinopril 20 MG TABLET PO SCH (08:34)
[2016-06-25] MEDS: Levofloxacin 750 MG/150 ML 750 MG/150 ML BAG IVPB SCH (08:34)
[2016-06-25] MEDS: cloNIDine HCl 0.1 MG TABLET PO SCH ×2 (08:34→20:14)
[2016-06-25] MEDS: Aspirin Enteric Coated 81 MG Tablet PO SCH (08:34)
--- NOTE | 2016-06-25 09:21 | Cardiothoracic Progress Note ---
Date of Encounter: 06/25/16 Time of Encounter: 09:18 - Assessment and plan (1) Pneumothorax Current Visit: Yes Status: Acute The assessment and plan as outlined above was discussed with the patient and/or family members who expressed understanding and agreement. All questions were answered. I discontinued the chest tube suction. We will check a chest x-ray tomorrow morning. The patient is okay to get out of bed. O2 saturations are 93 on 2 L. Qualifiers: Pneumothorax type: traumatic Encounter type: initial encounter Qualified Code(s): S27.0XXA - Traumatic pneumothorax, initial encounter - Subjective Interval history: The patient has no complaints. Vital Signs, Last 4 Hours Temp Pulse Resp BP Pulse Ox 06/25/16 07:38 97.4 F L 90 15 136/70 100 06/25/16 07:30 14 96 06/25/16 05:29 97.9 F 94 18 146/81 95 Oxgyen Flow Rate Oxygen Flow Rate (LPM) 7 Clinical Data, last 8 Hours Output, Urine Amount 500 Weight 06/23/16 06/24/16 06/25/16 23:59 23:59 23:59 Weight 52.9 kg Lungs are clear to percussion and auscultation. Heart is in a normal sinus rhythm. Chest tube drainage is minimal and there is no air leak. - Labs 06/25/16 05:30 06/25/16 05:30 Lab Results, Last 24 hours 06/25/16 06/25/16 05:30 05:30 WBC 6.7 Hgb 13.3 Hct 41.8 Plt Count 275 Sodium 136 Potassium 4.6 H Chloride 97 L Carbon Dioxide 30 H BUN 11 Creatinine 0.60 Glucose 110 H Calcium 9.3 - Imaging Chest Xray: report reviewed, image reviewed Consult Discharge Plan - Plan Referrals: Lloyd Harrell MD [Primary Care Provider] -
--- NOTE | 2016-06-25 12:51 | Internal Med Progress Note ---
<Robe Willis - Last Filed: 06/25/16 12:48> Date of Encounter: 06/25/16 Time of Encounter: 09:00 - Assessment and plan (1) Pneumothorax on right Current Visit: Yes Status: Acute Assessment and plan: Chest x-ray stable compared to yesterday. Apical pneumothorax has resolved. Chest he continued additional day as per cardiothoracic surgery. CBC and BMP in morning. (2) Acute exacerbation of chronic obstructive airways disease Current Visit: No Status: Acute Assessment and plan: Improved SOB. Patient is on 7L high flow O2 and saturating >97 percent. She is on 2L at home for COPD. Will decrease O2 supplementation and keep O2 saturation above 90 percent. Continue levaquin, steroids, nebulizer. (3) DVT prophylaxis Current Visit: Yes Status: Acute Assessment and plan: Heparin SQ. (4) Hyperglycemia Current Visit: Yes Status: Acute Assessment and plan: Resolved. 2nd to starting steroids. (5) Hyperkalemia Current Visit: Yes Status: Acute Assessment and plan: Trending down. Repeat BMP tomorrow (6) Hypertension Current Visit: Yes Status: Acute Assessment and plan: Controlled. Continue home medications. Qualifiers: Hypertension type: essential hypertension Qualified Code(s): I10 - Essential (primary) hypertension - Subjective Interval history: Patient reports continued abdominal pain on right thorax but has improved from yesterday. She says her breathing improved sensation sitting in a chair. There were no overnight issues. Denies cp, palpitations. - Constitutional Vitals: Temp Pulse Resp BP Pulse Ox 96.8 F L 86 15 110/50 100 06/25/16 11:42 06/25/16 11:42 06/25/16 11:42 06/25/16 11:42 06/25/16 11:42 General appearance: Present: cooperative, A&O X 3, no acute distress, answers questions appropriately - Respiratory Respiratory exam: Present: rhonchi (Throughout all lung peace). Absent: rales , wheezes - Cardiovascular Cardiovascular exam: Present: RRR, +S1, +S2. Absent: diastolic murmur, gallop, rubs, systolic murmur - GI/Abdominal GI/Abdominal exam: Present: normal bowel sounds, soft, no peritoneal signs. Absent: distended, tenderness - Extremities Exam Extremities exam: Present: warm, radial pulses palpable and symetrical. Absent : calf tenderness, cyanotic, pedal edema - Skin Skin exam: Present: dry, intact Internal Medicine: Result - Labs CBC & Chem 7: 06/25/16 05:30 06/25/16 05:30 Labs: Short CBC 06/25/16 Range/Units 05:30 WBC 6.7 (4.3-11.1) K/mcL Hgb 13.3 (11.5-15.4) g/dL Hct 41.8 (35.3-44.9) % Plt Count 275 (140-400) K/mcL Neutrophils # 5.1 (1.6-8.9) K/mcL BMP 06/25/16 05:30 Sodium 136 Potassium 4.6 H Chloride 97 L Carbon Dioxide 30 H BUN 11 Creatinine 0.60 Glucose 110 H Calcium 9.3 - ABG Interpretation ABG results: ABG ABG pH 7.29 pH Units (7.32-7.45) L 06/23/16 14:05 ABG pCO2 76 mmHg (35-45) H* 06/23/16 14:05 ABG pO2 220 mmHg (85-104) H 06/23/16 14:05 ABG O2 Saturation 100 % (95-98) H 06/23/16 14:05 PT/INR, D-dimer PT 11.0 Seconds (9.4-12.1) 06/23/16 11:52 - Impressions Impressions Chest X-Ray 06/25/16 06:00 IMPRESSION: Stable chest tube. Question of trace loculated pneumothorax at the right costophrenic angle, stable. Question of COPD. Discoid atelectasis at the right lung base, stable. D/ / Cesar Black MD / Cesar Black MD Interpreting Provider: Cesar Black MD Consult Discharge Plan - Plan Referrals: Lloyd Harrell MD [Primary Care Provider] - <Cayden Kessler P - Last Filed: 06/25/16 18:10> Date of Encounter: 06/25/16 - Constitutional Vitals: Temp Pulse Resp BP Pulse Ox 97.7 F 92 16 122/61 96 06/25/16 16:29 06/25/16 16:29 06/25/16 16:29 06/25/16 16:29 06/25/16 16:29 Internal Medicine: Result - Labs CBC & Chem 7: 06/25/16 05:30 06/25/16 05:30 Labs: Short CBC 06/25/16 Range/Units 05:30 WBC 6.7 (4.3-11.1) K/mcL Hgb 13.3 (11.5-15.4) g/dL Hct 41.8 (35.3-44.9) % Plt Count 275 (140-400) K/mcL Neutrophils # 5.1 (1.6-8.9) K/mcL BMP 06/25/16 05:30 Sodium 136 Potassium 4.6 H Chloride 97 L Carbon Dioxide 30 H BUN 11 Creatinine 0.60 Glucose 110 H Calcium 9.3 - ABG Interpretation ABG results: ABG ABG pH 7.29 pH Units (7.32-7.45) L 06/23/16 14:05 ABG pCO2 76 mmHg (35-45) H* 06/23/16 14:05 ABG pO2 220 mmHg (85-104) H 06/23/16 14:05 ABG O2 Saturation 100 % (95-98) H 06/23/16 14:05 PT/INR, D-dimer PT 11.0 Seconds (9.4-12.1) 06/23/16 11:52 - Impressions Impressions Chest X-Ray 06/25/16 06:00 IMPRESSION: Stable chest tube. Question of trace loculated pneumothorax at the right costophrenic angle, stable. Question of COPD. Discoid atelectasis at the right lung base, stable. D/ / Cesar Black MD / Cesar Black MD Interpreting Provider: Cesar Black MD - Attending Attestation I examined this patient and my medical decision-making was reviewed with the JTAC/PA/Advanced Practice Nurse/Resident Physician. I agree with the documented findings, disposition and treatment plan as described except to the extent set forth below.
[2016-06-25] MEDS: traMADol 50 MG TABLET PO PRN (20:34)
[2016-06-26] MEDS: Ipratropium/Albuterol Neb 3 ML IH SCH ×6 (03:25→23:36)
[2016-06-26] MEDS: MethylPREDNISolone 40 MG/ML VIAL IVP SCH ×2 (05:48→20:04)
[2016-06-26 06:34] LABS: BUN/Creatinine Ratio 27 (6-26); Blood Urea Nitrogen 16 mg/dL (7-20); Calcium 9.2 mg/dL (8.6-10.8); Carbon Dioxide 30 mEq/L (19-29); Chloride 96 mEq/L (98-109); Glucose 102 mg/dL (70-99); Osmolality,Calculated 281 (280-300); Potassium 4.5 mEq/L (3.5-4.5); Sodium 135 mEq/L (136-145); eGFR For African Americans > 60 (> 60); eGFR For Non-African Americans > 60 (> 60)
[2016-06-26 06:54] LABS: Hematocrit 42.8 % (35.3-44.9); Hemoglobin 13.7 g/dL (11.5-15.4); Immature Granulocytes % 0.6 % (0-4); Lymphocytes # 0.9 K/mcL (0.6-4.6); Lymphocytes % 16.9 %; Mean Corpuscular Hemoglobin 30.9 pg (28.0-33.3); Mean Corpuscular Volume 96.6 fL (83.0-100.0); Mean Platelet Volume 9.4 fL (9.4-12.4); Monocytes # 0.4 K/mcL (0.0-1.3); Monocytes % 7.4 %; Platelet Count 299 K/mcL (140-400); Red Blood Count 4.43 M/mcL (3.82-4.97); Red Cell Distribution Width 13.8 % (11.5-14.5); Segmented Neutrophils % 75.1 %
[2016-06-26] MEDS: *HR* Heparin 5,000 UNIT/ML VIAL SQ SCH ×2 (09:13→20:12)
[2016-06-26] MEDS: Loratadine 10 MG TABLET PO SCH (09:13)
[2016-06-26] MEDS: Aspirin Enteric Coated 81 MG Tablet PO SCH (09:13)
[2016-06-26] MEDS: cloNIDine HCl 0.1 MG TABLET PO SCH ×2 (09:14→20:12)
[2016-06-26] MEDS: clonazePAM 0.5 MG TABLET PO SCH ×2 (09:14→20:12)
[2016-06-26] MEDS: Lisinopril 20 MG TABLET PO SCH (09:15)
[2016-06-26] MEDS: Levofloxacin 750 MG/150 ML 750 MG/150 ML BAG IVPB SCH (09:23)
--- NOTE | 2016-06-26 11:01 | Cardiothoracic Progress Note ---
Date of Encounter: 06/26/16 Time of Encounter: 11:00 - Assessment and plan (1) Pneumothorax Current Visit: Yes Status: Acute The chest tube was removed. We will check a stat portable chest x-ray. Hopefully , the patient can be discharged tomorrow. Qualifiers: Pneumothorax type: traumatic Encounter type: initial encounter Qualified Code(s): S27.0XXA - Traumatic pneumothorax, initial encounter - Subjective Interval history: The patient has no complaints and is anxious to go home. Vital Signs, Last 4 Hours Temp Pulse Resp BP Pulse Ox 06/26/16 09:00 4 L 06/26/16 08:01 97.8 F 88 16 127/64 92 L Oxgyen Flow Rate Oxygen Flow Rate (LPM) 4 Clinical Data, last 8 Hours Output, Chest Tube Drainage 0 Amount [Right Side 4th Intercostal Space] Output, Chest Tube Drainage 0 Amount [Right Side 4th Intercostal Space] Output, Urine Amount 400 Weight 06/24/16 06/25/16 06/26/16 23:59 23:59 23:59 Weight 52.9 kg Lungs are clear to percussion and auscultation. Heart is in a normal sinus rhythm. The chest tube has minimal drainage and no air leak. Chest x-ray on water seal reveals no pneumothorax. - Labs 06/26/16 05:35 06/26/16 05:35 Lab Results, Last 24 hours 06/26/16 06/26/16 05:35 05:35 WBC 5.3 Hgb 13.7 Hct 42.8 Plt Count 299 Sodium 135 L Potassium 4.5 Chloride 96 L Carbon Dioxide 30 H BUN 16 Creatinine 0.60 Glucose 102 H Calcium 9.2 Consult Discharge Plan - Plan Referrals: Lloyd Harrell MD [Primary Care Provider] -
[2016-06-26] MEDS: Budesonide/Formoterol 80/4.5 MDI IH SCH ×2 (11:14→19:33)
--- NOTE | 2016-06-26 13:24 | Internal Med Progress Note ---
<Robe Willis - Last Filed: 06/26/16 13:22> Date of Encounter: 06/26/16 Time of Encounter: 13:22 - Assessment and plan (1) Pneumothorax on right Current Visit: Yes Status: Acute Assessment and plan: This morning's chest x-ray was stable. Chest tube was removed. Repeat chest x- ray was stable as well. Patient will likely be discharged tomorrow. Appreciate cardiothoracic surgery's help (2) Acute exacerbation of chronic obstructive airways disease Current Visit: No Status: Acute Assessment and plan: Patient's shortness of breath is improved. She has supplemented by 2 L oxygen which is her home dose. Continue levaquin, steroids, nebulizer. (3) DVT prophylaxis Current Visit: Yes Status: Acute Assessment and plan: Heparin SQ. (4) Hyperkalemia Current Visit: Yes Status: Acute (5) Hypertension Current Visit: Yes Status: Acute Assessment and plan: Controlled. Continue home medications. Qualifiers: Hypertension type: essential hypertension Qualified Code(s): I10 - Essential (primary) hypertension - Subjective Interval history: Chest tube was removed today. Patient is saturating well. She is on 2 L of oxygen. She has no complaints at this time. Physical therapy recommended patient be discharged to a rehabilitation facility to improve strength. I talked about this with the patient and she stated she would like to go home and consider physical therapy after talking with her family. She also refused home health physical therapy. Likely discharge tomorrow. - Constitutional Vitals: Temp Pulse Resp BP Pulse Ox 97.7 F 92 16 122/59 95 06/26/16 11:47 06/26/16 11:47 06/26/16 11:47 06/26/16 11:47 06/26/16 11:47 General appearance: Present: cooperative, A&O X 3, no acute distress, answers questions appropriately - Neck Neck exam general surgery: Present: supple, trachea midline. Absent: lymphadenopathy - Respiratory Respiratory exam: Present: decreased breath sounds, rhonchi (Unchanged from yesterday). Absent: accessory muscle use, rales, wheezes - Cardiovascular Cardiovascular exam: Present: RRR, +S1, +S2. Absent: diastolic murmur, gallop, rubs, systolic murmur - GI/Abdominal GI/Abdominal exam: Present: normal bowel sounds, soft, no peritoneal signs. Absent: distended, tenderness - Extremities Exam Extremities exam: Present: warm, radial pulses palpable and symetrical. Absent : calf tenderness, cyanotic, pedal edema - Incison Incision: Present: clean and dry, intact Internal Medicine: Result - Labs CBC & Chem 7: 06/26/16 05:35 06/26/16 05:35 Labs: Short CBC 06/26/16 Range/Units 05:35 WBC 5.3 (4.3-11.1) K/mcL Hgb 13.7 (11.5-15.4) g/dL Hct 42.8 (35.3-44.9) % Plt Count 299 (140-400) K/mcL Neutrophils # 4.0 (1.6-8.9) K/mcL BMP 06/26/16 05:35 Sodium 135 L Potassium 4.5 Chloride 96 L Carbon Dioxide 30 H BUN 16 Creatinine 0.60 Glucose 102 H Calcium 9.2 - ABG Interpretation ABG results: ABG ABG pH 7.29 pH Units (7.32-7.45) L 06/23/16 14:05 ABG pCO2 76 mmHg (35-45) H* 06/23/16 14:05 ABG pO2 220 mmHg (85-104) H 06/23/16 14:05 ABG O2 Saturation 100 % (95-98) H 06/23/16 14:05 PT/INR, D-dimer PT 11.0 Seconds (9.4-12.1) 06/23/16 11:52 - Impressions Impressions Chest X-Ray 06/26/16 00:01 IMPRESSION: No pneumothorax visible. D/ / Brigido Abbott MD / Brigido Abbott MD Interpreting Provider: Brigido Abbott MD Chest X-Ray 06/26/16 11:02 IMPRESSION: 1. Removal of the right pleural catheter without convincing evidence of pneumothorax. 2. Bibasilar scarring versus atelectasis. D/ / Yakov Rios MD / Yakov Rios MD Interpreting Provider: Yakov Rios MD Consult Discharge Plan - Plan Referrals: Lloyd Harrell MD [Primary Care Provider] - <Cayden Kessler P - Last Filed: 06/26/16 18:21> Date of Encounter: 06/26/16 - Constitutional Vitals: Temp Pulse Resp BP Pulse Ox 97.9 F 83 18 134/76 94 L 06/26/16 15:32 06/26/16 15:32 06/26/16 15:56 06/26/16 15:32 06/26/16 15:56 Internal Medicine: Result - Labs CBC & Chem 7: 06/26/16 05:35 06/26/16 05:35 Labs: Short CBC 06/26/16 Range/Units 05:35 WBC 5.3 (4.3-11.1) K/mcL Hgb 13.7 (11.5-15.4) g/dL Hct 42.8 (35.3-44.9) % Plt Count 299 (140-400) K/mcL Neutrophils # 4.0 (1.6-8.9) K/mcL BMP 06/26/16 05:35 Sodium 135 L Potassium 4.5 Chloride 96 L Carbon Dioxide 30 H BUN 16 Creatinine 0.60 Glucose 102 H Calcium 9.2 - ABG Interpretation ABG results: ABG ABG pH 7.29 pH Units (7.32-7.45) L 06/23/16 14:05 ABG pCO2 76 mmHg (35-45) H* 06/23/16 14:05 ABG pO2 220 mmHg (85-104) H 06/23/16 14:05 ABG O2 Saturation 100 % (95-98) H 06/23/16 14:05 PT/INR, D-dimer PT 11.0 Seconds (9.4-12.1) 06/23/16 11:52 - Impressions Impressions Chest X-Ray 06/26/16 00:01 IMPRESSION: No pneumothorax visible. D/ / Brigido Abbott MD / Brigido Abbott MD Interpreting Provider: Brigido Abbott MD Chest X-Ray 06/26/16 11:02 IMPRESSION: 1. Removal of the right pleural catheter without convincing evidence of pneumothorax. 2. Bibasilar scarring versus atelectasis. D/ / Yakov Rios MD / Yakov Rios MD Interpreting Provider: Yakov Rios MD - Attending Attestation I examined this patient and my medical decision-making was reviewed with the CAR PACKER/PA/Advanced Practice Nurse/Resident Physician. I agree with the documented findings, disposition and treatment plan as described except to the extent set forth below.
[2016-06-27] MEDS: Ipratropium/Albuterol Neb 3 ML IH SCH ×4 (03:43→15:14)
[2016-06-27] MEDS: MethylPREDNISolone 40 MG/ML VIAL IVP SCH (06:08)
[2016-06-27 07:11] LABS: BUN/Creatinine Ratio 26 (6-26); Blood Urea Nitrogen 16 mg/dL (7-20); Carbon Dioxide 30 mEq/L (19-29); Chloride 98 mEq/L (98-109); Glucose 99 mg/dL (70-99); Osmolality,Calculated 281 (280-300); Potassium 4.5 mEq/L (3.5-4.5); Sodium 135 mEq/L (136-145); eGFR For African Americans > 60 (> 60); eGFR For Non-African Americans > 60 (> 60)
[2016-06-27 07:21] LABS: Hemoglobin 13.8 g/dL (11.5-15.4); Mean Corpuscular HGB Conc 32.1 g/dL (31.6-35.5); Mean Corpuscular Hemoglobin 30.8 pg (28.0-33.3); Mean Platelet Volume 9.5 fL (9.4-12.4); Platelet Count 305 K/mcL (140-400); Red Blood Count 4.48 M/mcL (3.82-4.97); Red Cell Distribution Width 13.9 % (11.5-14.5)
[2016-06-27] MEDS: Budesonide/Formoterol 80/4.5 MDI IH SCH (07:45)
[2016-06-27] MEDS ORDERED: levoFLOXacin 250 MG TABLET PO SCH (09:00)
[2016-06-27] MEDS: Lisinopril 20 MG TABLET PO SCH (09:29)
[2016-06-27] MEDS: clonazePAM 0.5 MG TABLET PO SCH (09:29)
[2016-06-27] MEDS: Loratadine 10 MG TABLET PO SCH (09:29)
[2016-06-27] MEDS: *HR* Heparin 5,000 UNIT/ML VIAL SQ SCH (09:29)
[2016-06-27] MEDS: Aspirin Enteric Coated 81 MG Tablet PO SCH (09:29)
[2016-06-27] MEDS: cloNIDine HCl 0.1 MG TABLET PO SCH (09:29)
--- NOTE | 2016-06-27 10:02 | Cardiothoracic Progress Note ---
Date of Encounter: 06/27/16 Time of Encounter: 10:00 - Assessment and plan (1) Pneumothorax Current Visit: Yes Status: Acute The patient is okay for discharge at any time from my standpoint. I cautioned her not to smoke. I will sign off. Please call if needed. Qualifiers: Pneumothorax type: traumatic Encounter type: initial encounter Qualified Code(s): S27.0XXA - Traumatic pneumothorax, initial encounter - Subjective Interval history: The patient has no complaints. Vital Signs, Last 4 Hours Temp Pulse Resp BP Pulse Ox 06/27/16 09:27 114 132/65 91 L 06/27/16 07:47 16 100 06/27/16 07:00 97.6 F 80 18 134/78 100 Oxgyen Flow Rate Oxygen Flow Rate (LPM) 3 Lungs are clear to percussion and auscultation. Heart is in a normal sinus rhythm. This morning's chest x-ray reveals no pneumothorax. - Labs 06/27/16 06:14 06/27/16 06:14 Lab Results, Last 24 hours 06/27/16 06/27/16 06:14 06:14 WBC 5.5 Hgb 13.8 Hct 43.0 Plt Count 305 Sodium 135 L Potassium 4.5 Chloride 98 Carbon Dioxide 30 H BUN 16 Creatinine 0.62 Glucose 99 Calcium 9.0 Consult Discharge Plan - Plan Referrals: Lloyd Harrell MD [Primary Care Provider] -
--- NOTE | 2016-06-27 11:03 | Discharge Summary ---
<Robe Willis - Last Filed: 06/27/16 11:22> Date of Encounter: 06/27/16 Time of Encounter: 11:01 - Discharge Diagnosis (1) Pneumothorax on right Priority: Primary Status: Acute (2) Acute exacerbation of chronic obstructive airways disease Priority: Secondary Status: Acute (3) DVT prophylaxis Priority: Secondary Status: Acute (4) Hyperkalemia Priority: Secondary Status: Acute (5) Hypertension Priority: Secondary Status: Acute Qualifiers: Hypertension type: essential hypertension Qualified Code(s): I10 - Essential (primary) hypertension - Discharge Medications Home Medications: Albuterol Sulfate [Proventil Hfa] 2 puff IH Q4-6H PRN 05/03/16 [History] Aspirin [Lo-Dose Aspirin EC] 81 mg PO DAILY 05/03/16 [History] CloNIDine HCl [Kapvay] 0.1 mg PO BID 05/03/16 [History] ClonazePAM [Klonopin] 0.5 mg PO BID 05/03/16 [History] Furosemide [Lasix] 20 mg PO DAILY 05/03/16 [History] Ipratropium/Albuterol Neb [Duoneb] 3 ml IH Q6HR 05/03/16 [History] Lisinopril [Zestril] 20 mg PO DAILY 05/03/16 [History] Loratadine [Allergy Relief] 10 mg PO DAILY 05/03/16 [History] Atorvastatin [Lipitor] 80 mg PO HS #30 tablet 05/07/16 [Rx] Budesonide/Formoterol 80/4.5 [Symbicort 80/4.5] 2 puff IH BIDR #2 inhaler 05/07 [Rx] Clopidogrel [Plavix] 75 mg PO DAILY #30 tablet 05/07/16 [Rx] Metoprolol XL (24 HR) Succ [Toprol Xl] 50 mg PO DAILY #30 tab.er.24h 05/07/16 [ Rx] PredniSONE 10 mg PO DAILY #21 tablet 06/21/16 [Rx] Tramadol HCl [Ultram] 50 mg PO TID PRN #20 tab 06/21/16 [Rx] Allergies/Adverse Reactions: Allergies Penicillins [PCN] Allergy (Verified 05/03/16 03:46) Rash Sulfa (Sulfonamide Antibiotics) Allergy (Verified 05/03/16 03:46) Rash sulfamethoxazole [From Bactrim] Allergy (Verified 05/03/16 03:46) Hives Telithromycin [From Ketek] Allergy (Verified 05/03/16 03:46) Hives trimethoprim Allergy (Verified 05/03/16 03:46) Hives acetaminophen [From Percocet] Adverse Reaction (Verified 05/03/16 03:46) Nausea Oxycodone [From Percocet] Adverse Reaction (Verified 05/03/16 03:46) Nausea Needs editing Allergy (Uncoded 05/03/16 03:46) Chills Date of admission: 06/23/16 14:20 Primary care physician: Lloyd Harrell MD Consults: 06/23/16 15:40 Consult to [facility] [CONS] Routine Reason for SW Consult: home oxygen ni 06/25/16 06:16 Consult to Occupational Therapy [CONS] Routine Comment: Evaluate, develop and implement POC Consult to Physical Therapy [CONS] Routine Comment: Evaluate, develop and implement POC Discharging clinician: Robe Willis Anticipated date of discharge: 06/27/16 - Patient Status Disposition: Left Against Medical Advice Condition: Serious Functional capacity at discharge: bed bound Overall status at discharge: patient is not back to baseline - Discharge Instructions Instructions: Traumatic Pneumothorax (DC), Acute Respiratory Distress Syndrome (DC), How to Stop Smoking (DC), Chest Tubes (DC), Cigarette Smoking and Your Health (GEN), Chronic Obstructive Pulmonary Disease (DC), Chronic Hypertension ( DC), Anxiety (DC) Follow Up With: Lloyd Harrell MD [Primary Care Provider] - (Please call Wednesday to make an appointment to be seen within a week of discharge/AMA.) - Diet and Activity Activity: as per physical therapy (pT states patients nieeds skilled rehab. She has refused skilled rehab and home health physical theraphy), wear oxygen at all times (Pateint may not have enough supplemental O2 at home. We have urged her to stay at hospital until this is delt with but she has refused to stay. ) Hospital course: Ms. Phoenix is a 60 year old female past medical history of COPD on home oxygen , hypertension, anxiety presented to the emergency room for shortness of breath. Patient had sustained a mechanical fall when walking down the stairs and hurt her right chest. Patient was found to have a right pneumothorax secondary to right lateral refracture. A chest tube was placed. Chest x-ray post chest tube placement showed improvement of right pneumothorax. EKG showed sinus rhythm She was started on BiPAP support. In the ER her respiratory status improved. She is also started on Levaquin, Solu-Medrol, duo nebs for COPD exacerbation. Cardiothoracic surgery was consultative for management of chest tube. Chest tube was placed on suction. Patient was also started on supplemental oxygen and GI prophylaxis therapy. On June 24. Patient's x-ray showed mild loculated lateral pneumothorax and the apical pneumothorax had resolved. Patient was on 7 L high flow oxygen saturating 97%. On June 25 patient's chest tube was discontinued. Repeat chest x-ray showed improvement in the right pneumothorax. On June 26 patient's chest tube was removed. Repeat chest x-ray shows resolution of right pneumothorax. On June 27 repeat chest x-ray showed stable chest x-ray. Cardiothoracic surgeon said patient was okay to discharge. Physical therapy and occupational therapy was consulted and advised the patient to be discharged to a skilled rehabilitation facility for further strengthening. On June 27 physical therapy noted that patient had difficulty ambulating from her bed to her chair and it took 3 minutes to recover to bring her O2 sats ration spec up to 90% and she is severely short of breath. Patient was told about discharged to alf facility however she refused. She also refused to have physical therapy and occupational Therapy home health. Patient was adamant about going home today. Patient was told that if she goes home today she is at increased risk for falls resulting in further physical injury to herself, hypoxia resulting in syncope, and that she needs further medical treatment that cannot be provided to her at home. Even with this patient was adamant about going home. She has signed out AGAINST MEDICAL ADVICE. She will be sent home on a prednisone taper. - Time Spent with Patient Total time spent providing and/or coordinating discharge services: - Constitutional Vitals: Temp Pulse Resp BP Pulse Ox 97.6 F 114 16 132/65 91 L 06/27/16 07:00 06/27/16 09:27 06/27/16 07:47 06/27/16 09:27 06/27/16 09:27 General appearance: Present: cooperative, A&O X 3, no acute distress, answers questions appropriately - Head Head exam: Present: atraumatic, normocephalic - Eye Eye exam: Present: EOMI, PERRL, conjuntiva pink, sclera anicteric - Neck Neck exam general surgery: Present: supple, trachea midline. Absent: lymphadenopathy - Respiratory Respiratory exam: Present: CTAB, rhonchi (diffuse througout. No change from yesterday). Absent: accessory muscle use, rales, wheezes - Cardiovascular Cardiovascular exam: Present: +S1, +S2, tachycardia. Absent: diastolic murmur, gallop, rubs, systolic murmur - GI/Abdominal GI/Abdominal exam: Present: normal bowel sounds, soft, no peritoneal signs. Absent: distended, tenderness - Extremities Exam Extremities exam: Present: warm, radial pulses palpable and symetrical. Absent : calf tenderness, cyanotic, pedal edema - Neurological Exam Neurological exam: Present: CN II-XII intact, oriented X3, no focal deficits. Absent: pronater drift, facial droop, speech deficit - Psychiatric Psychiatric exam: Present: anxious, normal affect, normal mood - Skin Skin exam: Present: dry, intact <Victoria,Cayden P - Last Filed: 06/27/16 17:57> Date of Encounter: 06/27/16 Date of admission: 06/23/16 14:20 Primary care physician: Lloyd Harrell MD Consults: 06/23/16 15:40 Consult to [facility] [CONS] Routine Reason for SW Consult: home oxygen ni 06/25/16 06:16 Consult to Occupational Therapy [CONS] Routine Comment: Evaluate, develop and implement POC Consult to Physical Therapy [CONS] Routine Comment: Evaluate, develop and implement POC Hospital course: Ms. Phoenix is a 60 year old female - Time Spent with Patient Total time spent providing and/or coordinating discharge services: - Constitutional Vitals: Temp Pulse Resp BP Pulse Ox 97.6 F 96 16 144/72 92 L 06/27/16 07:00 06/27/16 11:00 06/27/16 11:23 06/27/16 11:00 06/27/16 11:23 - Attending Attestation I examined this patient and my medical decision-making was reviewed with the GRAIN PACKER/PA/Advanced Practice Nurse/Resident Physician. I agree with the documented findings, disposition and treatment plan as described except to the extent set forth below. Patient insisted to go home. Patient was recommended to go to ECF by physical therapy and occupational therapy. Patient does understand the risk of fall and possible complications. I discussed with the patient at length regarding going to ECF for further rehabilitation. Patient refused. Patient left hospital AGAINST MEDICAL ADVICE.
[2016-06-27 11:15] VITALS: BP 144/72
== END 2016-06-27 14:00 | disposition left against medical advice (07) | DRG 200 ==
LOC: 2NENU 11:20 → EMEROO 11:20 → 2NENU 14:53
PROVIDERS: ADMIT Internal Medicine; ATTEND Internal Medicine

== ENCOUNTER 2016-09-16 12:51 | Inpatient (IN) ==
[2016-09-16] MEDS ORDERED: Ipratropium/Albuterol Neb 3 ML ONE (13:02)
--- NOTE | 2016-09-16 13:53 | Emergency Department Note ---
Disposition Clinical Impression: Acute exacerbation of chronic obstructive airways disease, Hypoxia Disposition: Admitted As Inpatient Condition: Fair SOB HPI - General Chief Complaint: ED Shortness of Breath/Dyspnea Stated Complaint: SOB Time Seen by Provider: 09/16/16 12:55 Source: EMS - History of Present Illness Patient presents with shortness of breath by paramedics and admitted to the patient immediately upon arrival and also spoke with the paramedics and the patient does have a history of COPD and does use home oxygen at 3 L per presented with 6 L oxygen with a saturation of only 90%. She has had shortness of breath last several days which is worse with exertion and severe. She also has chest pain which is just left of the sternal border without radiation. No critical aspect. No radiation to the back, neck, arm, or jaw. No exertional component. No diaphoresis. No pain or swelling of the lower extremities. She does have a cough as well as rhinorrhea. Cough is productive of sputum. No hemoptysis. Social history: Stopped smoking 3 months ago - Related Data Home Medications Medication Instructions Recorded Confirmed Albuterol Sulfate [Proventil Hfa] 2 puff IH Q4-6H PRN 05/03/16 09/16/16 Aspirin [Lo-Dose Aspirin EC] 81 mg PO DAILY 05/03/16 09/16/16 CloNIDine HCl [Kapvay] 0.1 mg PO BID 05/03/16 09/16/16 ClonazePAM [Klonopin] 0.5 mg PO BID 05/03/16 09/16/16 Ipratropium/Albuterol Neb [Duoneb] 3 ml IH Q6HR 05/03/16 09/16/16 Lisinopril [Zestril] 20 mg PO DAILY 05/03/16 09/16/16 Loratadine [Allergy Relief] 10 mg PO DAILY 05/03/16 09/16/16 Amlodipine [Norvasc] 5 mg PO DAILY 09/16/16 09/16/16 Atorvastatin Calcium [Lipitor] 20 mg PO HS 09/16/16 09/16/16 Previous Rx's Medication Instructions Recorded Metoprolol XL (24 HR) Succ [Toprol 50 mg PO DAILY #30 tab.er.24h 05/07/16 Xl] Allergies Allergy/AdvReac Type Severity Reaction Status Date / Time Penicillins [PCN] Allergy Rash Verified 05/03/16 03:46 Sulfa (Sulfonamide Allergy Rash Verified 05/03/16 03:46 Antibiotics) sulfamethoxazole Allergy Hives Verified 05/03/16 03:46 [From Bactrim] Telithromycin [From Ketek] Allergy Hives Verified 05/03/16 03:46 trimethoprim Allergy Hives Verified 05/03/16 03:46 acetaminophen [From Percocet] AdvReac Nausea Verified 05/03/16 03:46 Oxycodone [From Percocet] AdvReac Nausea Verified 05/03/16 03:46 Needs editing Allergy Chills Uncoded 05/03/16 03:46 Review of Systems: Constitutional: No fever Vision: No blurred vision ENT: + rhinorrhea Respiratory: + cough Allergic: No allergies : No blood in urine GI: No blood in stool Hematologic: No bruising Dermatologic: No new skin rash Musculoskeletal: No pain in the extremities Neuro: No numbness of the extremities Past Medical History - Past Medical History Medical history: Reports: asthma, COPD, hypertension Surgical history: Reports: cataract (Bilateral excision with lens implantation.) , cholecystectomy Psychiatric history: Reports: anxiety - Social History Smoking Status: Unknown if ever smoked Smokeless Tobacco Status: No Alcohol use: Reports: none Drug use: Reports: none Physical Exam CONSTITUTIONAL: Alert and oriented X3, well-nourished, moderate respiratory distress, older than stated age, in no apparent distress HEAD: Normocephalic; atraumatic. EYES: PERRL, no scleral icterus. NOSE: The nose is normal in appearance without rhinorrhea RESP: Normal chest excursion with respiration; breath sounds with bilateral wheezing and tight sounding lungs with decreased lung sounds on the right CARD: Regular rhythm, without murmurs, rub or gallop ABD: Non-distended; non-tender, soft,without rigidity, rebound or guarding SKIN: Normal for age and race; warm and dry; no apparent lesions EXTREMITIES: Pulses are 2 plus and equal times 4 extremities, no peripheral edema or calf muscle pain. - General General appearance: alert Course Vital Signs Temperature 98.1 F 09/16/16 12:52 Pulse Rate 85 09/16/16 12:52 Respiratory Rate 26 09/16/16 12:52 Blood Pressure 169/75 09/16/16 12:52 O2 Sat by Pulse Oximetry 88 L 09/16/16 12:52 Temperature 98.1 F 09/16/16 19:21 Pulse Rate 83 09/16/16 19:21 Respiratory Rate 16 09/16/16 20:44 Blood Pressure 114/69 09/16/16 19:21 O2 Sat by Pulse Oximetry 85 L 09/16/16 20:44 Oxygen Delivery Oxygen Delivery Nasal Cannula Shortness of Breath/Dyspnea - MDM Narrative Medical decision making narrative: The patient presents with significant respiratory distress and a x-rays done showing COPD but no new change. She does have chest pain and troponins ordered and pending. I did review the EKG showing normal sinus rhythm with rate of 86 and evidence of pulmonary pattern but no evidence of ischemic changes or arrhythmia. The patient did receive solumedrol and breathing treatment prior to arrival as well as DuoNeb here and will be started on antibiotics and admitted. I do not detect signs of pulmonary embolism or pneumothorax however she has had that in the recent past. Was admitted here in June. 13:54 I did check up on the patient as she is improved. Her labs are pending. 1414 Did review the patient's labs, does have mild hyperkalemia and the patient will be treated with IV fluids and this can be checked further as an inpatient and I did discuss this with Dr. Rosado who has accepted the patient for admission. Will initiate IV Levaquin. She is artery had steroids and DuoNeb. Her condition is improved but she does remain concerning because her oxygen saturation is only 91% on 4 L nasal cannula. She typically uses 3 L. Will be admitted for ongoing care. 1517 - Lab Data Lab results reviewed: Yes I reviewed the patient's lab results. Result diagrams: 09/16/16 14:17 09/16/16 14:17 Lab Results 09/16/16 09/16/16 09/16/16 Range/Units 14:17 14:17 14:17 WBC 4.8 (4.3-11.1) K/mcL RBC 5.44 H (3.82-4.97) M/mcL Hgb 16.4 H (11.5-15.4) g/dL Hct 51.7 H (35.3-44.9) % MCV 95.0 (83.0-100.0) fL MCH 30.1 (28.0-33.3) pg MCHC 31.7 (31.6-35.5) g/dL RDW 13.3 (11.5-14.5) % Plt Count 208 (140-400) K/mcL MPV 9.3 L (9.4-12.4) fL Immature Plt Fraction 4.1 (1.1-6.1) % Sodium 133 L (136-145) mEq/L Potassium 5.0 H (3.5-4.5) mEq/L Chloride 94 L (98-109) mEq/L Carbon Dioxide 28 (19-29) mEq/L BUN 7 (7-20) mg/dL Creatinine 0.62 (0.57-1.11) mg/dL Est GFR ( Amer) > 60 (> 60) Est GFR (Non-Af Amer) > 60 (> 60) BUN/Creatinine Ratio 11 (6-26) Glucose 115 H (70-99) mg/dL Calculated Osmolality 275 L (280-300) Calcium 9.5 (8.6-10.8) mg/dL Troponin I 0.00 (0-0.03) ng/mL
[2016-09-16 14:23] LABS: Hematocrit 51.7 % (35.3-44.9); Hemoglobin 16.4 g/dL (11.5-15.4); Immature Platelets 4.1 % (1.1-6.1); Mean Corpuscular HGB Conc 31.7 g/dL (31.6-35.5); Mean Corpuscular Hemoglobin 30.1 pg (28.0-33.3); Mean Platelet Volume 9.3 fL (9.4-12.4); Red Blood Count 5.44 M/mcL (3.82-4.97); Red Cell Distribution Width 13.3 % (11.5-14.5)
[2016-09-16 14:34] LABS: BUN/Creatinine Ratio 11 (6-26); Blood Urea Nitrogen 7 mg/dL (7-20); Calcium 9.5 mg/dL (8.6-10.8); Carbon Dioxide 28 mEq/L (19-29); Chloride 94 mEq/L (98-109); Glucose 115 mg/dL (70-99); Osmolality,Calculated 275 (280-300); Sodium 133 mEq/L (136-145); eGFR For African Americans > 60 (> 60); eGFR For Non-African Americans > 60 (> 60)
[2016-09-16] MEDS ORDERED: Albuterol 2.5 MG/3 ML NEBULIZER IH ONE (16:34)
[2016-09-16] MEDS ORDERED: methylPREDNISolone 125 MG/2 ML VIAL IVP ONE (16:34)
[2016-09-16] MEDS ORDERED: Calcium Gluconate 1,000 MG in D5% in Water 100 ML IVPB ONE (16:36)
--- NOTE | 2016-09-16 16:43 | Internal Med History&Physical ---
Date of Encounter: 09/16/16 Time of Encounter: 16:40 Assessment and Plan (1) Acute bronchitis Current visit: Yes Status: Acute No evidence of pneumonia on chest x-ray however patient is a COPD or with increased cough and field outpatient antibiotic therapy. Suspect resistance.. I will start the patient on Levaquin 750 mg IV daily Qualifiers: Qualified Code(s): J20.9 - Acute bronchitis, unspecified (2) Acute respiratory failure with hypoxia Current visit: Yes Status: Acute Suspect hypoxic hypercapnic respiratory failure. Patients with slight accessory muscle use. However she still speaking and 45 word sentences. Satting 88 to 90% on 4 1/2 L of nasal oxygen. I will get an arterial blood gas. If no improvement in her respiratory status patient will be placed on BiPAP. Patient this will cold (3) Hyperkalemia Current visit: No Status: Resolved She is on lisinopril discontinue should improve with frequent nebulizer treatments I will give sodium bicarb calcium gluconate. Repeat potassium level at 8 PM. EKG shows no hyperkalemia EKG changes (4) COPD with acute exacerbation Current visit: No Status: Acute Will start the patient on Solu-Medrol 60 mg Q6 hours, Q3 our nebulizer treatments. Internal Medicine - H&P: HPI Chief complaint: SOB History of present illness: Ms. Phoenix is a 61 year old female with history of COPD on 2 1/2 L 02 recently hospitalized with our facility in June 2016 for pneumonia presents to the emergency room today with the main complaint of shortness of breath. Patient actually has been progressively short of breath for the past couple of weeks. She has seen her PCP on August 25 about 3 weeks ago who prescribed her 10 days of doxycycline and one refill so she has been taking doxycycline for the past 20 days. She notices worsening in her shortness of breath she short of breath sitting down without any activity. She has cough but no notable sputum production she has lots of wheezing. Her primary doctor asked her to increase her oxygen therapy to 3-3.5 L which she has been doing but still notices no improvement in her respiratory status. She denies any lower extremity swelling orthopnea or paroxysmal nocturnal dyspnea. She denies any chest pain. No fever. On my Interview in the emergency room patient was in mild respiratory distress with accessory muscle use saturating 88% on 4 and half liters of nasal oxygen. However she was speaking in 4 to 5 Word sentences. Past Med Surg Social Fam HX - Past Medical History Medical history: asthma, COPD, hypertension Psychiatric history: anxiety - Past Surgical History Surgical History: cataract (Bilateral excision with lens implantation.), cholecystectomy - Social History Smoking Status: Unknown if ever smoked Smokeless Tobacco Status: No Alcohol use: none Drug use: none Internal Medicine - H&P: Meds Albuterol Sulfate [Proventil Hfa] 2 puff IH Q4-6H PRN 05/03/16 [History] Aspirin [Lo-Dose Aspirin EC] 81 mg PO DAILY 05/03/16 [History] CloNIDine HCl [Kapvay] 0.1 mg PO BID 05/03/16 [History] ClonazePAM [Klonopin] 0.5 mg PO BID 05/03/16 [History] Ipratropium/Albuterol Neb [Duoneb] 3 ml IH Q6HR 05/03/16 [History] Lisinopril [Zestril] 20 mg PO DAILY 05/03/16 [History] Loratadine [Allergy Relief] 10 mg PO DAILY 05/03/16 [History] Metoprolol XL (24 HR) Succ [Toprol Xl] 50 mg PO DAILY #30 tab.er.24h 05/07/16 [ Rx] Amlodipine [Norvasc] 5 mg PO DAILY 09/16/16 [History] Atorvastatin Calcium [Lipitor] 20 mg PO HS 09/16/16 [History] Allergies Penicillins [PCN] Allergy (Verified 05/03/16 03:46) Rash Sulfa (Sulfonamide Antibiotics) Allergy (Verified 05/03/16 03:46) Rash sulfamethoxazole [From Bactrim] Allergy (Verified 05/03/16 03:46) Hives Telithromycin [From Ketek] Allergy (Verified 05/03/16 03:46) Hives trimethoprim Allergy (Verified 05/03/16 03:46) Hives acetaminophen [From Percocet] Adverse Reaction (Verified 05/03/16 03:46) Nausea Oxycodone [From Percocet] Adverse Reaction (Verified 05/03/16 03:46) Nausea Needs editing Allergy (Uncoded 05/03/16 03:46) Chills All Systems PM: A 10-system review of systems was performed and is negative for pertinent findings except as documented above in the HPI. Review of systems: 10 point review of systems is negative except for HPI. - Constitutional Vitals: Temp Pulse Resp BP Pulse Ox 98.1 F 76 18 126/73 91 L 09/16/16 12:52 09/16/16 15:12 09/16/16 15:52 09/16/16 15:52 09/16/16 15:12 Exam: Gen.: patient is alert oriented not in distress. Cardiac: Normal S1 S2 no additional sounds or murmurs chest: Significantly diminished air entry, expiratory wheezing. Accessory muscle use abdomen soft nontender nondistended normal bowel sounds lower extremity: lax calf muscles neuro no focal deficit Internal Med - H&P Results - Labs CBC & Chem 7: 09/16/16 14:17 09/16/16 14:17
[2016-09-16] MEDS: Ipratropium/Albuterol Neb 3 ML IH SCH ×2 (17:24→20:34)
[2016-09-16 17:33] LABS: ABG Base Excess 4.5 mEq/L (-2.0 to 3.0); ABG Oxygen Saturation 85 % (95-98); ABG PCO2 64 mmHg (35-45); ABG PH 7.32 pH Units (7.32-7.45); ABG PO2 55 mmHg (85-104); Blood Gas FiO2 36 %
[2016-09-16] MEDS: methylPREDNISolone 125 MG/2 ML VIAL IVP SCH ×2 (19:36→23:55)
[2016-09-16] MEDS: *HR* Heparin 5,000 UNIT/ML VIAL SQ SCH (21:25)
[2016-09-16] MEDS: Levofloxacin 750 MG/150 ML 750 MG/150 ML BAG IVPB SCH (21:25)
[2016-09-17] MEDS: Ipratropium/Albuterol Neb 3 ML IH SCH ×9 (04:40→22:54)
[2016-09-17 05:25] LABS: Immature Granulocytes % 0.6 % (0-4)
[2016-09-17 05:27] LABS: Hematocrit 48.2 % (35.3-44.9); Hemoglobin 15.5 g/dL (11.5-15.4); Lymphocytes # 0.5 K/mcL (0.6-4.6); Lymphocytes % 27.9 %; Mean Corpuscular HGB Conc 32.2 g/dL (31.6-35.5); Mean Corpuscular Hemoglobin 30.6 pg (28.0-33.3); Mean Corpuscular Volume 95.1 fL (83.0-100.0); Mean Platelet Volume 10.1 fL (9.4-12.4); Monocytes % 1.2 %; Neutrophils # 1.2 K/mcL (1.6-8.9); Platelet Count 208 K/mcL (140-400); Red Blood Count 5.07 M/mcL (3.82-4.97); Red Cell Distribution Width 13.3 % (11.5-14.5); Segmented Neutrophils % 70.3 %
[2016-09-17 05:46] LABS: BUN/Creatinine Ratio 18 (6-26); Blood Urea Nitrogen 11 mg/dL (7-20); Calcium 9.6 mg/dL (8.6-10.8); Carbon Dioxide 32 mEq/L (19-29); Chloride 94 mEq/L (98-109); Creatine Kinase 64 Units/L (29-168); Glucose 128 mg/dL (70-99); Magnesium 1.8 mg/dL (1.6-2.6); Osmolality,Calculated 281 (280-300); Potassium 4.8 mEq/L (3.5-4.5); Sodium 135 mEq/L (136-145); eGFR For African Americans > 60 (> 60); eGFR For Non-African Americans > 60 (> 60)
[2016-09-17 05:59] LABS: Platelet Estimate Normal (Normal)
[2016-09-17] MEDS: *HR* Heparin 5,000 UNIT/ML VIAL SQ SCH ×3 (06:51→22:42)
[2016-09-17] MEDS: methylPREDNISolone 125 MG/2 ML VIAL IVP SCH ×4 (06:51→22:42)
--- NOTE | 2016-09-17 08:17 | Electrocardiograph Report ---
[place] [id number] Test Date: 2016-09-16 Pat Name: Ladonna Phoenix Department: 103 Room: 3B37 Gender: F Certified Detention Deputy: FIDE : 1955 Requested By: Fernando Burkett Order Number: [id number] Reading MD: Ranjeet Craft MD Measurements Intervals [place] Rate: 86 P: 81 RI: 179 QRS: 71 QRSD: 93 T: 59 QT: 330 QTc: 373 Interpretive Statements SINUS RHYTHM LOW QRS VOLTAGE IN EXTREMITY LEADS Poor R wave progression Electronically Signed On 09-17-2016 8:15:29 EDT by Ranjeet Craft MD
[2016-09-17] MEDS: Levofloxacin 750 MG/150 ML 750 MG/150 ML BAG IVPB SCH (08:22)
[2016-09-17] MEDS: Famotidine 20 MG TABLET PO SCH (08:22)
[2016-09-17] MEDS: Metoprolol XL (24 HR) Succ 50 MG TAB.ER.24H PO SCH (08:22)
[2016-09-17] MEDS: Aspirin Enteric Coated 81 MG Tablet PO SCH (08:22)
[2016-09-17] MEDS: amLODIPine 5 MG TABLET PO SCH (08:22)
[2016-09-17] MEDS: *HR* LORazepam 0.5 MG TABLET PO PRN ×2 (11:31→22:42)
[2016-09-17] MEDS: Acetaminophen 325 MG TABLET PO PRN ×2 (16:19→22:42)
--- NOTE | 2016-09-17 20:04 | Internal Med Progress Note ---
Date of Encounter: 09/16/16 Time of Encounter: 10:00 - Assessment and plan (1) COPD with acute exacerbation Current Visit: No Status: Acute Assessment and plan: Patient reports a 2 day history of shortness of breath, productive cough with white sputum. During my exam she became more in distress. She could only speak in short phrases the end. Her lungs are diminished with expiratory wheezes throughout posteriorly. Immediately ordered a DuoNeb and patient was put back in bed in respiratory call. She did well after. DuoNeb scheduled, albuterol nebs when necessary Levaquin 750 mg IV daily Solu-Medrol 60 mg IV every 6 hours Continuous pulse ox Scratch [employer] labs Motor patient condition (2) Acute respiratory failure with hypoxia Current Visit: No Status: Resolved Assessment and plan: Patient is having to wear 6 L of O2 at this time to maintain her sats in the low 90s. She does not wear oxygen at home Plan as above (3) Anxiety Current Visit: No Status: Chronic Assessment and plan: Patient began becoming short of breath when talking to me during her assessment. She became noticeably anxious over her shortness of breath, which exacerbated the respiratory distress. Patient was only able to speak in short phrases. Ativan 0.5 mg by mouth every 4 hours when necessary anxiety (4) Hypertension Current Visit: No Status: Acute Assessment and plan: Chronic Is slightly hypertensive. Continue home medications Qualifiers: Hypertension type: essential hypertension Qualified Code(s): I10 - Essential (primary) hypertension (5) DVT prophylaxis Current Visit: No Status: Acute Assessment and plan: Subcutaneous heparin - Time Spent With Patient less than 15 minutes - Subjective Interval history: Patient was up sitting in the chair when I assessed her this morning. She reports a 2 day history of shortness of breath, productive cough with white sputum. She denies increased use of her inhalers at home. She reports subjective fevers, however has been afebrile here. The more talked to patient, the more distress she becomes. She is wearing oxygen this stretched across the room from the wall to the foot of the bed. Patient is given a breathing treatment and placed back in bed. She is having to wear O2 at 6 L that was changed by respiratory to maintain her sats in the low 90s. Her lungs were diminished and had expiratory wheezing and posterior peace. She was speaking in short phrases. - Constitutional Vitals: Temp Pulse Resp BP Pulse Ox 97.7 F 98 18 158/71 93 L 09/17/16 15:14 09/17/16 15:14 09/17/16 15:44 09/17/16 15:14 09/17/16 15:44 General appearance: Present: A&O X 3, pleasant, severe distress, answers questions appropriately - Head Head exam: Present: normal inspection - Eye Eye exam: Present: normal appearance, PERRL, conjuntiva pink - ENT ENT exam: Present: mucous membranes moist, normal exam - Neck Neck exam general surgery: Present: normal inspection. Absent: lymphadenopathy , tenderness - Respiratory Respiratory exam: Present: respiratory distress, wheezes, tachypnea. Absent: chest wall tenderness, decreased breath sounds, rales - Cardiovascular Cardiovascular exam: Present: RRR, +S1, +S2, tachycardia - GI/Abdominal GI/Abdominal exam: Present: normal bowel sounds. Absent: hepatomegaly, tenderness - Neurological Exam Neurological exam: Present: alert, oriented X3, no focal deficits, strengths equal and symetr throughout Internal Medicine: Result - Labs CBC & Chem 7: 09/17/16 04:37 09/17/16 04:37 Labs: Short CBC 09/17/16 Range/Units 04:37 WBC 1.7 L D (4.3-11.1) K/mcL Hgb 15.5 H (11.5-15.4) g/dL Hct 48.2 H (35.3-44.9) % Plt Count 208 (140-400) K/mcL Neutrophils # 1.2 L (1.6-8.9) K/mcL BMP 09/16/16 09/17/16 20:40 04:37 Sodium 135 L Potassium 4.6 H 4.8 H Chloride 94 L Carbon Dioxide 32 H BUN 11 Creatinine 0.61 Glucose 128 H Calcium 9.6 Cardiac Enzymes 09/16/16 09/17/16 Range/Units 20:40 04:37 Troponin I 0.00 0.00 (0-0.03) ng/mL - ABG Interpretation ABG results: ABG ABG pH 7.32 pH Units (7.32-7.45) 09/16/16 17:23 ABG pCO2 64 mmHg (35-45) H 09/16/16 17:23 ABG pO2 55 mmHg (85-104) L 09/16/16 17:23 ABG O2 Saturation 85 % (95-98) L 09/16/16 17:23 Consult Discharge Plan - Plan Referrals: Santino Anderson MD [Primary Care Provider] - 09/25/16 10:00 am
[2016-09-18] MEDS: Ipratropium/Albuterol Neb 3 ML IH SCH ×8 (03:47→22:34)
[2016-09-18] MEDS: *HR* Heparin 5,000 UNIT/ML VIAL SQ SCH ×3 (05:43→21:06)
[2016-09-18] MEDS: methylPREDNISolone 125 MG/2 ML VIAL IVP SCH ×4 (05:43→23:47)
[2016-09-18 05:58] LABS: Hematocrit 47.3 % (35.3-44.9); Hemoglobin 15.6 g/dL (11.5-15.4); Immature Granulocytes % 0.3 % (0-4); Lymphocytes # 0.5 K/mcL (0.6-4.6); Lymphocytes % 7.8 %; Mean Platelet Volume 10.6 fL (9.4-12.4); Monocytes # 0.1 K/mcL (0.0-1.3); Monocytes % 2.2 %; Neutrophils # 5.8 K/mcL (1.6-8.9); Platelet Count 199 K/mcL (140-400); Red Blood Count 5.03 M/mcL (3.82-4.97); Red Cell Distribution Width 13.4 % (11.5-14.5); Segmented Neutrophils % 89.7 %
[2016-09-18 06:26] LABS: BUN/Creatinine Ratio 24 (6-26); Blood Urea Nitrogen 15 mg/dL (7-20); Calcium 9.4 mg/dL (8.6-10.8); Carbon Dioxide 33 mEq/L (19-29); Chloride 95 mEq/L (98-109); Glucose 142 mg/dL (70-99); Osmolality,Calculated 283 (280-300); Sodium 135 mEq/L (136-145); eGFR For African Americans > 60 (> 60); eGFR For Non-African Americans > 60 (> 60)
[2016-09-18] MEDS ORDERED: *HR* LORazepam 2 MG/ML VIAL IVP ONE ×2 (08:54→17:59)
[2016-09-18] MEDS: Famotidine 20 MG TABLET PO SCH (09:26)
[2016-09-18] MEDS: Metoprolol XL (24 HR) Succ 50 MG TAB.ER.24H PO SCH (09:26)
[2016-09-18] MEDS: Aspirin Enteric Coated 81 MG Tablet PO SCH (09:26)
[2016-09-18] MEDS: Levofloxacin 750 MG/150 ML 750 MG/150 ML BAG IVPB SCH (09:26)
[2016-09-18] MEDS: amLODIPine 5 MG TABLET PO SCH (09:26)
[2016-09-18 09:39] LABS: ABG Base Excess 8.2 mEq/L (-2.0 to 3.0); ABG HCO3 37.4 mEQ/L (21-27); ABG Oxygen Saturation 87 % (95-98); ABG PH 7.33 pH Units (7.32-7.45); ABG PO2 57 mmHg (85-104); ABG TCO2 39.6 mEq/L (20-26)
[2016-09-18 09:40] LABS: ABG PCO2 71 mmHg (35-45); Blood Gas FiO2 35 %
[2016-09-18] MEDS: Acetaminophen 325 MG TABLET PO PRN (12:56)
[2016-09-18] MEDS ORDERED: Ipratropium/Albuterol Neb 3 ML IH STA (17:57)
[2016-09-18 18:15] LABS: ABG Base Excess 12.8 mEq/L (-2.0 to 3.0); ABG HCO3 42.9 mEQ/L (21-27); ABG Oxygen Saturation 90 % (95-98); ABG PH 7.36 pH Units (7.32-7.45); ABG PO2 61 mmHg (85-104); ABG TCO2 45.2 mEq/L (20-26)
[2016-09-18 18:17] LABS: ABG PCO2 76 mmHg (35-45); Blood Gas FiO2 44 %
--- NOTE | 2016-09-18 20:51 | Internal Med Progress Note ---
Date of Encounter: 09/18/16 Time of Encounter: 09:00 - Assessment and plan (1) COPD with acute exacerbation Current Visit: No Status: Acute Assessment and plan: Pt has had to remain on bipap today. She becomes hypoxic and more sob when she is not on bipap. She was having difficulty tolerating the bipap mask and was hesitant to wear it. She also becomes anxious and does seem to do better with some ativan. Pt has had 2 ABGs today and is compensating. pH is WNL, C02 is elevated. Pt is tolerating bipap well now. We will continue plan of care and primary RN did enter a pulmonology consult. Duonebs, albuterol treatments Levaquin IV Solu-medrol Continuous pulse oxTelemetry Monitor labs ABGs as needed and in a.m. Monitor pt condition closely (2) Acute respiratory failure with hypoxia Current Visit: No Status: Resolved Assessment and plan: Pt has had to have bipap on most of the day today. She desats into the high 70s , low 80s, without 02 at 6L. She is in distress and is able to only speak about 2 words at a time. Her lungs are diminished with faint exp wheezing posteriorly. She has had 2 ABGs today and she is compensating well, C02 did go from 71 to 76. She will need to stay on bipap over night and reassess in the a.m. Plan as above (3) Anxiety Current Visit: No Status: Chronic Assessment and plan: Pt becomes anxious when she is having difficulty breathing. She does respond well to Ativan. She states that she takes Klonipin at home. We will continue to monitor. Pt has Ativan ordered prn. (4) Hypertension Current Visit: No Status: Acute Assessment and plan: Chronic Is slightly hypertensive. Continue home medications Qualifiers: Hypertension type: essential hypertension Qualified Code(s): I10 - Essential (primary) hypertension (5) DVT prophylaxis Current Visit: No Status: Acute Assessment and plan: Subcutaneous heparin - Time Spent With Patient less than 15 minutes - Subjective Interval history: Pt was sitting up in the chair at end of bed, she appeared to be in distress. Pt was on bipap over night and was placed on it again. Pt was having difficulty with mask and was given Ativan to assist with her anxiety that was making her have more distresss. When meals came, she would remove mask and again start having difficulty. Pt was seen by me and another physician who agreed that pt was to stay on bipap overnight. We discussed her condition and the possibility of needing to be intubated if she is resistant to bipap. Pt agreed. Patient was up sitting in the chair when I assessed her this morning. She reports a 2 day history of shortness of breath, productive cough with white sputum. She denies increased use of her inhalers at home. She reports subjective fevers, however has been afebrile here. The more talked to patient, the more distress she becomes. She is wearing oxygen this stretched across the room from the wall to the foot of the bed. Patient is given a breathing treatment and placed back in bed. She is having to wear O2 at 6 L that was changed by respiratory to maintain her sats in the low 90s. Her lungs were diminished and had expiratory wheezing and posterior peace. She was speaking in short phrases. - Constitutional Vitals: Temp Pulse Resp BP Pulse Ox 97.7 F 97 22 150/80 98 09/18/16 19:56 09/18/16 19:56 09/18/16 19:56 09/18/16 19:56 09/18/16 20:05 General appearance: Present: A&O X 3, pleasant, severe distress, answers questions appropriately - Head Head exam: Present: normal inspection - Eye Eye exam: Present: normal appearance, conjuntiva pink - ENT ENT exam: Present: mucous membranes moist, normal exam - Neck Neck exam general surgery: Present: lymphadenopathy. Absent: normal inspection , tenderness - Respiratory Respiratory exam: Present: accessory muscle use, decreased breath sounds, respiratory distress, wheezes, tachypnea - Cardiovascular Cardiovascular exam: Present: RRR, +S1, +S2, tachycardia - GI/Abdominal GI/Abdominal exam: Present: normal bowel sounds, soft. Absent: tenderness - Extremities Exam Extremities exam: Present: normal capillary refill, warm, radial pulses palpable and symetrical. Absent: pedal edema, tenderness - Neurological Exam Neurological exam: Present: alert, oriented X3, no focal deficits, strengths equal and symetr throughout Internal Medicine: Result - Labs CBC & Chem 7: 09/18/16 05:19 09/18/16 05:19 Labs: Short CBC 09/18/16 Range/Units 05:19 WBC 6.5 D (4.3-11.1) K/mcL Hgb 15.6 H (11.5-15.4) g/dL Hct 47.3 H (35.3-44.9) % Plt Count 199 (140-400) K/mcL Neutrophils # 5.8 (1.6-8.9) K/mcL BMP 09/18/16 05:19 Sodium 135 L Potassium 5.0 H Chloride 95 L Carbon Dioxide 33 H BUN 15 Creatinine 0.62 Glucose 142 H Calcium 9.4 - ABG Interpretation ABG results: ABG ABG pH 7.36 pH Units (7.32-7.45) 09/18/16 18:05 ABG pCO2 76 mmHg (35-45) H* 09/18/16 18:05 ABG pO2 61 mmHg (85-104) L 09/18/16 18:05 ABG O2 Saturation 90 % (95-98) L 09/18/16 18:05 Consult Discharge Plan - Plan Referrals: Santino Anderson MD [Primary Care Provider] - 09/25/16 10:00 am
[2016-09-19] MEDS: Ipratropium/Albuterol Neb 3 ML IH SCH ×8 (01:30→23:06)
[2016-09-19 04:22] LABS: Hemoglobin 15.7 g/dL (11.5-15.4); Immature Granulocytes % 0.7 % (0-4); Lymphocytes # 0.9 K/mcL (0.6-4.6); Lymphocytes % 9.4 %; Mean Corpuscular HGB Conc 30.8 g/dL (31.6-35.5); Mean Corpuscular Hemoglobin 29.7 pg (28.0-33.3); Mean Corpuscular Volume 96.6 fL (83.0-100.0); Mean Platelet Volume 9.8 fL (9.4-12.4); Monocytes # 0.4 K/mcL (0.0-1.3); Monocytes % 3.7 %; Neutrophils # 8.3 K/mcL (1.6-8.9); Platelet Count 282 K/mcL (140-400); Red Blood Count 5.28 M/mcL (3.82-4.97); Red Cell Distribution Width 13.3 % (11.5-14.5); Segmented Neutrophils % 86.2 %
[2016-09-19 04:40] LABS: BUN/Creatinine Ratio 27 (6-26); Blood Urea Nitrogen 17 mg/dL (7-20); Calcium 9.5 mg/dL (8.6-10.8); Carbon Dioxide 35 mEq/L (19-29); Chloride 92 mEq/L (98-109); Glucose 121 mg/dL (70-99); Osmolality,Calculated 291 (280-300); Potassium 4.1 mEq/L (3.5-4.5); Sodium 139 mEq/L (136-145); eGFR For African Americans > 60 (> 60); eGFR For Non-African Americans > 60 (> 60)
[2016-09-19] MEDS: *HR* Heparin 5,000 UNIT/ML VIAL SQ SCH ×3 (06:39→21:57)
[2016-09-19] MEDS: methylPREDNISolone 125 MG/2 ML VIAL IVP SCH ×4 (06:39→23:34)
[2016-09-19] MEDS: Budesonide/Formoterol 160/4.5 MDI IH SCH ×2 (07:40→20:05)
--- NOTE | 2016-09-19 08:03 | Pulmonology Consult Note ---
Date of Encounter: 09/19/16 Time of Encounter: 07:58 Assessment and Plan (1) Acute on chronic respiratory failure with hypoxia and hypercapnia Current Visit: Yes Status: Acute This is most likely secondary to COPD exacerbation from respiratory tract infection possibly complicated by underlying CHF. wean Fio2 to keep O2 sats >88-92% cont NIVVP as tolerated (ok for breaks to eat/rest) ( ave adjusted IPAP/EPAP ratio OOBTC early ambulation as tolerated (2) Acute exacerbation of chronic obstructive airways disease Current Visit: Yes Status: Acute Continue IV steroids Solu-Medrol 60 mg every 8 hours Continue duo nebs every 2-4 hours Start Symbicort 160/4.5 2 puffs twice a day Levaquin is a reasonable empiric antimicrobial it would be helpful to check a respiratory viral panel and sputum culture if possible (3) Takotsubo cardiomyopathy Current Visit: No Status: Acute Recommend repeating nonurgently an echocardiogram to evaluate his systolic ejection fraction has resumed to returned o normal Agree with continuation of beta georgie therapy which should be titrated She may benefit in the short-term from afterload reduction with an agent such as hydralazine and overall will need better BP control as this is driving up cardiac filling pressures complicated dyspnea Check BNP level (4) DVT prophylaxis Current Visit: No Status: Acute High risk for DVT would continue chemical DVT prophylaxis History of Present Illness Consult date: 09/19/16 Requesting physician: Angela Tovar Reason for consult: COPD Chief complaint: Dyspnea History of present illness: This is a very pleasant 61-year-old woman who presented with worsening shortness of breath initially noted on Wednesday. I first at the present pleasure of taking care of Ms. Phoenix earlier in the year when she was admitted for possible STEMI which turned out to be stress-induced cardiomyopathy likely secondary to respiratory failure from COPD and pneumonia. Since then she reports she has been doing well has followed up with [employer] but has not been able to be cut an coupled from oxygen therapy. She has history of COPD with tobacco abuse in remission. She takes MDIs everyday. She states that she took care of her granddaughter earlier in the week and thinks her granddaughter had an upper respiratory tract infection which she may have contracted subsequently around Wednesday she began having chills and fever with increased shortness of breath work of breathing and a nonproductive cough. She has not some increased swelling in her lower extremities or last few months as well. On presentation to the ED she was in respiratory extremis chest x-ray at that time was neagtive for focal opacity and iniial cardiac evaluation was unremarkable. She has been treated with IV steroids and ABx along with bronchodilators but remain severely dypsneic despite use of NIPPV. When I talked with her today she says that she has made incremental improvement overnight. Past Med Surg Social Fam HX - Past Medical History Medical history: asthma, COPD, hypertension Psychiatric history: anxiety - Past Surgical History Surgical History: cataract (Bilateral excision with lens implantation.), cholecystectomy - Social History Smoking Status: Unknown if ever smoked Smokeless Tobacco Status: No Alcohol use: none Drug use: none Medications and Allergies Albuterol Sulfate [Proventil Hfa] 2 puff IH Q4-6H PRN 05/03/16 [History] Aspirin [Lo-Dose Aspirin EC] 81 mg PO DAILY 05/03/16 [History] CloNIDine HCl [Kapvay] 0.1 mg PO BID 05/03/16 [History] ClonazePAM [Klonopin] 0.5 mg PO BID 05/03/16 [History] Ipratropium/Albuterol Neb [Duoneb] 3 ml IH Q6HR 05/03/16 [History] Lisinopril [Zestril] 20 mg PO DAILY 05/03/16 [History] Loratadine [Allergy Relief] 10 mg PO DAILY 05/03/16 [History] Metoprolol XL (24 HR) Succ [Toprol Xl] 50 mg PO DAILY #30 tab.er.24h 05/07/16 [ Rx] Amlodipine [Norvasc] 5 mg PO DAILY 09/16/16 [History] Atorvastatin Calcium [Lipitor] 20 mg PO HS 09/16/16 [History] Allergies Penicillins [PCN] Allergy (Verified 05/03/16 03:46) Rash Sulfa (Sulfonamide Antibiotics) Allergy (Verified 05/03/16 03:46) Rash sulfamethoxazole [From Bactrim] Allergy (Verified 05/03/16 03:46) Hives Telithromycin [From Ketek] Allergy (Verified 05/03/16 03:46) Hives trimethoprim Allergy (Verified 05/03/16 03:46) Hives acetaminophen [From Percocet] Adverse Reaction (Verified 05/03/16 03:46) Nausea Oxycodone [From Percocet] Adverse Reaction (Verified 05/03/16 03:46) Nausea Needs editing Allergy (Uncoded 05/03/16 03:46) Chills All Systems: A 10-system review of systems was performed and is negative for pertinent findings except as documented above in the HPI. Physical Examination Vital Signs: Vital Signs, Last 4 Hours Temp Pulse Resp BP Pulse Ox 09/19/16 06:54 97.5 F L 100 17 158/77 91 09/19/16 04:20 27 92 General appearance: appears uncomfortable Eyes: nonicteric Neck: supple, no lymphadenopathy Effort: very labored Auscultation: bilateral: diminished breath sounds, wheezes Cardiovascular: regular rate and rhythm Gastrointestinal: normoactive bowel sounds Extremities: edema Musculoskeletal: no deformities normal mental status, non-focal exam mood appropriate Results - Laboratory Findings CBC and BMP: 09/19/16 03:35 09/19/16 03:35 ABG ABG pH 7.36 pH Units (7.32-7.45) 09/18/16 18:05 ABG pCO2 76 mmHg (35-45) H* 09/18/16 18:05 ABG pO2 61 mmHg (85-104) L 09/18/16 18:05 ABG O2 Saturation 90 % (95-98) L 09/18/16 18:05 Abnormal lab findings: Abnormal lab results RBC 5.28 M/mcL (3.82-4.97) H 09/19/16 03:35 Hgb 15.7 g/dL (11.5-15.4) H 09/19/16 03:35 Hct 51.0 % (35.3-44.9) H 09/19/16 03:35 MCHC 30.8 g/dL (31.6-35.5) L 09/19/16 03:35 ABG pCO2 76 mmHg (35-45) H* 09/18/16 18:05 ABG pO2 61 mmHg (85-104) L 09/18/16 18:05 ABG HCO3 42.9 mEQ/L (21-27) H 09/18/16 18:05 ABG Total CO2 45.2 mEq/L (20-26) H 09/18/16 18:05 ABG O2 Saturation 90 % (95-98) L 09/18/16 18:05 ABG Base Excess 12.8 mEq/L (-2.0 to 3.0) H 09/18/16 18:05 Chloride 92 mEq/L (98-109) L 09/19/16 03:35 Carbon Dioxide 35 mEq/L (19-29) H 09/19/16 03:35 BUN/Creatinine Ratio 27 (6-26) H 09/19/16 03:35 Glucose 121 mg/dL (70-99) H 09/19/16 03:35 B-Natriuretic Peptide 101 pg/mL (0-100) H 09/19/16 03:35 - Diagnostic Findings Chest x-ray: report reviewed, image reviewed - Clinical Findings Intake & Output: Intake & Output 09/18/16 09/18/16 09/19/16 15:59 23:59 07:59 Intake Total 630 / 630 400 / 400 Output Total 700 / 700 100 / 100 300 / 300 Balance -70 / -70 300 / 300 -300 / -300 Weight 47.1 kg Consult Discharge Plan - Plan Referrals: Santino Anderson MD [Primary Care Provider] - 09/25/16 10:00 am
[2016-09-19] MEDS: Metoprolol XL (24 HR) Succ 50 MG TAB.ER.24H PO SCH (08:44)
[2016-09-19] MEDS: Aspirin Enteric Coated 81 MG Tablet PO SCH (08:44)
[2016-09-19] MEDS: amLODIPine 5 MG TABLET PO SCH (08:44)
[2016-09-19] MEDS: Levofloxacin 750 MG/150 ML 750 MG/150 ML BAG IVPB SCH (08:45)
[2016-09-19] MEDS: Famotidine 20 MG TABLET PO SCH (08:45)
[2016-09-19] MEDS: *HR* LORazepam 0.5 MG TABLET PO PRN ×2 (13:06→20:30)
--- NOTE | 2016-09-19 15:56 | Internal Med Progress Note ---
Date of Encounter: 09/19/16 Time of Encounter: 11:15 - Assessment and plan (1) Acute and chronic respiratory failure Current Visit: Yes Status: Acute Assessment and plan: Due to acute COPD exacerbation. Continue O2 supplementation with BiPAP with breaks as needed to eat and dress. Will also attempt a BiPAP qualification study tonight. Consulted respiratory therapy to help with the study. Patient at high risk for complications from this condition. Qualifiers: Respiratory failure complication: hypoxia and hypercapnia Qualified Code(s) : J96.21 - Acute and chronic respiratory failure with hypoxia; J96.22 - Acute and chronic respiratory failure with hypercapnia (2) COPD with acute exacerbation Current Visit: Yes Status: Acute Assessment and plan: Pulmonology consult appreciated. We will follow recommendations. Continue bronchodilator nebs and IV steroids. Also on levofloxacin. Influenza screen is negative. (3) DVT prophylaxis Current Visit: No Status: Acute Assessment and plan: With subcutaneous heparin (4) Takotsubo cardiomyopathy Current Visit: No Status: Chronic Assessment and plan: Patient with history of Takotsubo cardiomyopathy. we will repeat 2-D echo to assess ejection fraction (5) Hypertension Current Visit: Yes Status: Acute Assessment and plan: Fairly controlled. On Toprol XL. Will add hydralazine if persistently on the higher side. Qualifiers: Hypertension type: essential hypertension Qualified Code(s): I10 - Essential (primary) hypertension - Subjective Interval history: Patient is awake and alert. She remains in respiratory distress and on BiPAP. No chest pain. Complains of anxiety related to her telemetry monitoring. Receiving scheduled bronchodilator treatments and IV steroids. - Constitutional Vitals: Temp Pulse Resp BP Pulse Ox 97.3 F L 92 16 139/66 94 09/19/16 15:02 09/19/16 15:02 09/19/16 15:02 09/19/16 15:02 09/19/16 15:02 General appearance: Present: A&O X 3, pleasant, answers questions appropriately Exam: Moderate distress - ENT Additional comments: BiPAP mask in place - Respiratory Respiratory exam: Present: decreased breath sounds, prolonged expiratory phase, respiratory distress, rhonchi, wheezes. Absent: accessory muscle use, rales - Cardiovascular Cardiovascular exam: Present: RRR, +S1, +S2. Absent: diastolic murmur, gallop, rubs, systolic murmur - GI/Abdominal GI/Abdominal exam: Present: normal bowel sounds, soft, no peritoneal signs. Absent: distended, tenderness - Extremities Exam Extremities exam: Present: warm, radial pulses palpable and symetrical. Absent : calf tenderness, cyanotic, pedal edema - Neurological Exam Neurological exam: Present: alert, oriented X3, no focal deficits. Absent: facial droop, speech deficit - Skin Skin exam: Present: dry, intact Internal Medicine: Result - Labs CBC & Chem 7: 09/19/16 03:35 09/19/16 03:35 Labs: Short CBC 09/19/16 Range/Units 03:35 WBC 9.7 (4.3-11.1) K/mcL Hgb 15.7 H (11.5-15.4) g/dL Hct 51.0 H (35.3-44.9) % Plt Count 282 (140-400) K/mcL Neutrophils # 8.3 (1.6-8.9) K/mcL BMP 09/19/16 03:35 Sodium 139 Potassium 4.1 Chloride 92 L Carbon Dioxide 35 H BUN 17 Creatinine 0.62 Glucose 121 H Calcium 9.5 - ABG Interpretation ABG results: ABG ABG pH 7.36 pH Units (7.32-7.45) 09/18/16 18:05 ABG pCO2 76 mmHg (35-45) H* 09/18/16 18:05 ABG pO2 61 mmHg (85-104) L 09/18/16 18:05 ABG O2 Saturation 90 % (95-98) L 09/18/16 18:05 Consult Discharge Plan - Plan Referrals: Santino Anderson MD [Primary Care Provider] - 09/25/16 10:00 am - Attending Attestation This document has been at least partially created by [employer] recognition technology by Dr. Tovar. Errors in grammar, wording or other phrases may exist. If errors are found after the documentation is signed, they will be addressed individually in the addendum section of this document when appropriate.
[2016-09-19 18:24] LABS: CK-MB (CK isoenzymes) 0 % (0-4); CK-MM (CK-isoenzymes) 100 % (96-100)
[2016-09-20] MEDS: Ipratropium/Albuterol Neb 3 ML IH SCH ×8 (01:55→23:43)
[2016-09-20] MEDS: *HR* Heparin 5,000 UNIT/ML VIAL SQ SCH ×4 (05:59→21:31)
[2016-09-20] MEDS: Budesonide/Formoterol 160/4.5 MDI IH SCH ×2 (08:06→19:44)
[2016-09-20] MEDS: Levofloxacin 750 MG/150 ML 750 MG/150 ML BAG IVPB SCH (08:38)
[2016-09-20] MEDS: methylPREDNISolone 125 MG/2 ML VIAL IVP SCH ×3 (08:38→23:03)
[2016-09-20] MEDS: Aspirin Enteric Coated 81 MG Tablet PO SCH (08:39)
[2016-09-20] MEDS: Famotidine 20 MG TABLET PO SCH (08:39)
[2016-09-20] MEDS: amLODIPine 5 MG TABLET PO SCH (08:39)
[2016-09-20] MEDS: Metoprolol XL (24 HR) Succ 50 MG TAB.ER.24H PO SCH (08:39)
[2016-09-20] MEDS: *HR* LORazepam 0.5 MG TABLET PO PRN ×2 (08:48→23:04)
--- NOTE | 2016-09-20 09:01 | Pulmonology Progress Note ---
Date of Encounter: 09/20/16 Time of Encounter: 09:01 Assessment and Plan (1) Acute on chronic respiratory failure with hypoxia and hypercapnia Current Visit: Yes Status: Acute s/t to COPD exacerbation Cont NIPPV for comfort wean fio2 to keep O2 sat >88-92% Cont OOBTC and early ambulation when appropriate (2) Acute exacerbation of chronic obstructive airways disease Current Visit: Yes Status: Acute cont IV solumedrol cont DUnebs Q2-4 Symbciort started agree with empiric antimicrobials x 7 days (3) Takotsubo cardiomyopathy Current Visit: No Status: Chronic BNP is elevated. BP not well controlled. HR remains elevated. All of above is leading to increased cardiac filling pressures and worsening dyspnea with acute exacerbation of dyspnea Would need repeat ECHO Titrate dose of BB Consider small dose of diuretic (4) DVT prophylaxis Current Visit: No Status: Acute cont chemical DVT prophylaxis while inpatient. Subjective Principal diagnosis: COPD Exacerbation Interval history: Says that she is feeling overall slightly better. Able to spend more time off of BiPAP but total amount of time is still small. Objective PUL Vital signs: Last Vital Signs Temp 97.3 F L 09/20/16 06:47 Pulse 94 09/20/16 06:47 Resp 20 09/20/16 08:09 BP 159/83 09/20/16 08:09 Pulse Ox 96 09/20/16 08:09 General appearance: no acute distress Effort: very labored Auscultation: bilateral: diminished breath sounds, wheezes Cardiovascular: regular rate and rhythm Extremities: edema normal mental status, non-focal exam mood appropriate Results - Laboratory Findings CBC and BMP: 09/19/16 03:35 09/19/16 03:35 ABG ABG pH 7.36 pH Units (7.32-7.45) 09/18/16 18:05 ABG pCO2 76 mmHg (35-45) H* 09/18/16 18:05 ABG pO2 61 mmHg (85-104) L 09/18/16 18:05 ABG O2 Saturation 90 % (95-98) L 09/18/16 18:05 Abnormal lab findings: Abnormal lab results RBC 5.28 M/mcL (3.82-4.97) H 09/19/16 03:35 Hgb 15.7 g/dL (11.5-15.4) H 09/19/16 03:35 Hct 51.0 % (35.3-44.9) H 09/19/16 03:35 MCHC 30.8 g/dL (31.6-35.5) L 09/19/16 03:35 ABG pCO2 76 mmHg (35-45) H* 09/18/16 18:05 ABG pO2 61 mmHg (85-104) L 09/18/16 18:05 ABG HCO3 42.9 mEQ/L (21-27) H 09/18/16 18:05 ABG Total CO2 45.2 mEq/L (20-26) H 09/18/16 18:05 ABG O2 Saturation 90 % (95-98) L 09/18/16 18:05 ABG Base Excess 12.8 mEq/L (-2.0 to 3.0) H 09/18/16 18:05 Chloride 92 mEq/L (98-109) L 09/19/16 03:35 Carbon Dioxide 35 mEq/L (19-29) H 09/19/16 03:35 BUN/Creatinine Ratio 27 (6-26) H 09/19/16 03:35 Glucose 121 mg/dL (70-99) H 09/19/16 03:35 B-Natriuretic Peptide 101 pg/mL (0-100) H 09/19/16 03:35 - Microbiology Findings Microbiology Findings: Microbiology, Last 48 Hours 09/19/16 14:20 Influenza Types A,B Antigen ([place]) - Final Nasopharyngeal Consult Discharge Plan - Plan Referrals: Santino Anderson MD [Primary Care Provider] - 09/25/16 10:00 am
--- NOTE | 2016-09-20 11:54 | Internal Med Progress Note ---
Date of Encounter: 09/20/16 Time of Encounter: 11:00 - Assessment and plan (1) Acute and chronic respiratory failure Current Visit: Yes Status: Acute Assessment and plan: Continue noninvasive positive pressure ventilation. Continue bronchodilators as scheduled and IV steroids. Pulmonology following. Moderate risk for complications Qualifiers: Respiratory failure complication: hypoxia and hypercapnia Qualified Code(s) : J96.21 - Acute and chronic respiratory failure with hypoxia; J96.22 - Acute and chronic respiratory failure with hypercapnia (2) COPD with acute exacerbation Current Visit: Yes Status: Acute Assessment and plan: management as above (3) DVT prophylaxis Current Visit: No Status: Acute (4) Takotsubo cardiomyopathy Current Visit: No Status: Chronic Assessment and plan: Will get 2-D echocardiogram. Increase beta georgie dosage. We will also give 20 mg of IV Lasix as patient's BNP slightly elevated. (5) Hypertension Current Visit: Yes Status: Chronic Assessment and plan: Blood pressure is elevated. We will increase metoprolol dosage. Qualifiers: Hypertension type: essential hypertension Qualified Code(s): I10 - Essential (primary) hypertension - Subjective Interval history: Patient remains on BiPAP. She was desaturating to 85% or below for more than 5 minutes on testing yesterday while off her. Would benefit from home BiPAP. Denies any chest pain at this time. Able to talk in more complete sentences. - Constitutional Vitals: Temp Pulse Resp BP Pulse Ox 97.4 F L 92 30 160/80 99 09/20/16 10:26 09/20/16 10:26 09/20/16 10:48 09/20/16 10:37 09/20/16 10:48 General appearance: Present: A&O X 3, pleasant, answers questions appropriately Exam: Moderate distress - ENT Additional comments: BiPAP mask in place - Respiratory Respiratory exam: Present: prolonged expiratory phase, respiratory distress, wheezes. Absent: rales, rhonchi - GI/Abdominal GI/Abdominal exam: Present: normal bowel sounds, soft, no peritoneal signs. Absent: distended, tenderness - Extremities Exam Extremities exam: Present: warm, radial pulses palpable and symetrical. Absent : calf tenderness, cyanotic, pedal edema - Neurological Exam Neurological exam: Present: alert, oriented X3, no focal deficits. Absent: facial droop, speech deficit Internal Medicine: Result - Labs CBC & Chem 7: 09/19/16 03:35 09/19/16 03:35 - ABG Interpretation ABG results: ABG ABG pH 7.36 pH Units (7.32-7.45) 09/18/16 18:05 ABG pCO2 76 mmHg (35-45) H* 09/18/16 18:05 ABG pO2 61 mmHg (85-104) L 09/18/16 18:05 ABG O2 Saturation 90 % (95-98) L 09/18/16 18:05 Consult Discharge Plan - Plan Referrals: Santino Anderson MD [Primary Care Provider] - 09/25/16 10:00 am - Attending Attestation This document has been at least partially created by [employer] recognition technology by Dr. Tovar. Errors in grammar, wording or other phrases may exist. If errors are found after the documentation is signed, they will be addressed individually in the addendum section of this document when appropriate.
[2016-09-20] MEDS ORDERED: Furosemide 20 MG/2 ML VIAL IVP ONE (11:56)
--- NOTE | 2016-09-20 15:40 | ECHO - Doppler Report ---
Echocardiogram Name: Ladonna Phoenix Date of Study: 09/20/2016 Date: 1955 Ht: 62.0 in Medical Record#: [id number] Age: 61 Wt: 103.0 lb Gender: Female BSA: 1.44 Order #: [id number] Location: [facility] Room #: [id number] Reading Physician: Riya Haftield DO Alarm Mechanism Adjuster: Lori Sands Ordering Physician: Angela Tovar MD Primary Physician: Santino Anderson MD Indications: Elevated BNP, Hx of Takotsubo cardiomyopathy Impressions: Technically challenging study. Patient sitting upright for procedure. Overall, LV systolic function is normal, EF 65%. Normal left ventricular size and systolic function. Indeterminate left venticular diastoic function Normal right ventricular size and function. No significant valvular dysfunction. No pulmonary hypertension. Left Ventricular Wall Motion: Rest Echo Findings All wall segments showed normal motion. Findings: Study Quality * Technically sub-optimal due to clinical status. Patient unable to lay down. Patient was sitting upright for exam. ECG Findings * Normal sinus rhythm. Left Ventricle * LVEF 65%. * Normal LV chamber size, wall thickness and function. * Indeterminate diastolic function. Left Atrium * Severely dilated left atrium. Mitral Valve * Normal mitral valve structure. * No mitral stenosis. * No mitral regurgitation. Aorta * Normally sized aortic root. Tricuspid Valve * No tricuspid regurgitation. * Normal tricuspid valve structure. * Estimated RA pressure is 3 mmHg. Pulmonic Valve * Pulmonic valve is not well visualized. * No pulmonic stenosis. * No pulmonic regurgitation. Pulmonary Artery * Pulmonary artery not well visualized. Aortic Valve * Aortic valve not well visualized. * No aortic regurgitation. * No aortic stenosis. Right Ventricle * Normal right ventricular structure and function. Right Atrium * Normal right atrial size. Interatrial Septum * No evidence of PFO by color Doppler. IVC * Normal IVC dimensions and inspiratory collapse. Pericardium * There is no pericardial effusion present. History Hypertension Hypercholesteremia Family History of CAD Myocardial Infarction Congestive Heart Failure 05/03/2016 a Previous Echo was performed. Measurements: BP: 160/ 80 2D Normal Values IVSd: 1.00 cm 0.6 - 1.0 cm LVIDd: 4.20 cm 3.7 - 5.6 cm LVPWd: .70 cm 0.6 - 1.1 cm LVIDs: 3.50 cm 1.5 - 3.6 cm AO: 2.00 cm < 4.0 cm LA: 2.70 cm 2.0 - 4.0cm %FS: 16.70 cm >25 % LA volume: Mitral Valve Peak E:1.11 m/sec Peak A:1.08 m/sec E/A Ratio:1 Peak E' Lat Abdulaziz:11.7 cm/s Peak E' Med Abdulaziz:8.97 cm/s E/E' Lat Ratio:9.5 E/E' Med Ratio:12.4 Updated by Riya Hatfield on 09/20/2016 3:31:17 PM electronically signed on 09/20/2016 3:35:44 PM with status of Final Wall Motion Humphrey: 1=Normal, 2=Hypokinesis, 3=Akinesis, 4=Dyskinesis, 5=Aneurysmal, 6=Hyperkinetic, X=Not Visualized (Blank)=Missing
[2016-09-21] MEDS: Ipratropium/Albuterol Neb 3 ML IH SCH ×8 (03:35→23:22)
[2016-09-21 04:52] LABS: Hematocrit 47.9 % (35.3-44.9); Hemoglobin 15.7 g/dL (11.5-15.4); Immature Granulocytes % 0.7 % (0-4); Lymphocytes # 0.5 K/mcL (0.6-4.6); Lymphocytes % 11.4 %; Mean Corpuscular HGB Conc 32.8 g/dL (31.6-35.5); Mean Corpuscular Hemoglobin 30.4 pg (28.0-33.3); Mean Corpuscular Volume 92.6 fL (83.0-100.0); Mean Platelet Volume 9.6 fL (9.4-12.4); Monocytes # 0.2 K/mcL (0.0-1.3); Monocytes % 4.6 %; Neutrophils # 3.4 K/mcL (1.6-8.9); Platelet Count 217 K/mcL (140-400); Red Blood Count 5.17 M/mcL (3.82-4.97); Red Cell Distribution Width 13.2 % (11.5-14.5); Segmented Neutrophils % 83.3 %
[2016-09-21] MEDS: *HR* LORazepam 0.5 MG TABLET PO PRN ×4 (05:00→22:14)
[2016-09-21] MEDS: *HR* Heparin 5,000 UNIT/ML VIAL SQ SCH ×3 (05:01→21:14)
[2016-09-21 05:07] LABS: BUN/Creatinine Ratio 40 (6-26); Blood Urea Nitrogen 22 mg/dL (7-20); Calcium 9.3 mg/dL (8.6-10.8); Carbon Dioxide 38 mEq/L (19-29); Chloride 87 mEq/L (98-109); Glucose 87 mg/dL (70-99); Osmolality,Calculated 281 (280-300); Potassium 4.1 mEq/L (3.5-4.5); Sodium 134 mEq/L (136-145); eGFR For African Americans > 60 (> 60); eGFR For Non-African Americans > 60 (> 60)
[2016-09-21 07:32] LABS: CK Total (Ck Isoenzymes) 63 U/L (20-180); CK-BB (CK isoenzymes) 0 % (0-0)
[2016-09-21] MEDS: methylPREDNISolone 125 MG/2 ML VIAL IVP SCH ×2 (08:13→15:46)
[2016-09-21] MEDS: Levofloxacin 750 MG/150 ML 750 MG/150 ML BAG IVPB SCH (08:13)
[2016-09-21] MEDS: amLODIPine 5 MG TABLET PO SCH (08:13)
[2016-09-21] MEDS: Aspirin Enteric Coated 81 MG Tablet PO SCH (08:13)
[2016-09-21] MEDS: Famotidine 20 MG TABLET PO SCH (08:13)
[2016-09-21] MEDS: Metoprolol XL (24 HR) Succ 50 MG TAB.ER.24H PO SCH (08:14)
[2016-09-21] MEDS: Budesonide/Formoterol 160/4.5 MDI IH SCH ×2 (08:30→19:30)
--- NOTE | 2016-09-21 13:41 | Internal Med Progress Note ---
Date of Encounter: 09/21/16 Time of Encounter: 10:45 - Assessment and plan (1) Acute and chronic respiratory failure Current Visit: Yes Status: Acute Assessment and plan: Continue BiPAP. We will wean as tolerated. Due to acute exacerbation of COPD with a component of right-sided heart failure/cor pulmonale. On levofloxacin and IV Solu-Medrol. Moderate risk for complications. Qualifiers: Respiratory failure complication: hypoxia and hypercapnia Qualified Code(s) : J96.21 - Acute and chronic respiratory failure with hypoxia; J96.22 - Acute and chronic respiratory failure with hypercapnia (2) COPD with acute exacerbation Current Visit: Yes Status: Acute Assessment and plan: Continue IV steroids. Continue scheduled bronchodilators. (3) DVT prophylaxis Current Visit: No Status: Acute Assessment and plan: On subcutaneous heparin (4) Takotsubo cardiomyopathy Current Visit: No Status: Chronic Assessment and plan: Echocardiogram done shows a middle ejection fraction of 65% with indeterminate left ventricular diastolic function. All wall segments show normal motion. (5) Hypertension Current Visit: Yes Status: Chronic Assessment and plan: Blood pressure is elevated. Increase dosage of Toprol-XL to 100 daily. Will assess response Qualifiers: Hypertension type: essential hypertension Qualified Code(s): I10 - Essential (primary) hypertension - Subjective Interval history: Patient continues to require BiPAP. She has not been able to be weaned down to nasal cannula yet even temporarily. She does speak in full sentences. Denies any chest pain. No fever or chills reported overnight. - Constitutional Vitals: Temp Pulse Resp BP Pulse Ox 96.6 F L 82 15 148/78 94 09/21/16 11:20 09/21/16 11:20 09/21/16 11:42 09/21/16 11:42 09/21/16 11:42 General appearance: Present: cooperative, A&O X 3, pleasant, answers questions appropriately Exam: Moderate distress - ENT Additional comments: BiPAP mask in place - Respiratory Respiratory exam: Present: accessory muscle use, decreased breath sounds, prolonged expiratory phase, respiratory distress, wheezes. Absent: rales, rhonchi - Cardiovascular Cardiovascular exam: Present: RRR, +S1, +S2. Absent: diastolic murmur, gallop, rubs, systolic murmur - GI/Abdominal GI/Abdominal exam: Present: normal bowel sounds, soft, no peritoneal signs. Absent: distended, tenderness - Extremities Exam Extremities exam: Present: warm, radial pulses palpable and symetrical. Absent : calf tenderness, cyanotic, pedal edema - Neurological Exam Neurological exam: Present: alert, oriented X3, no focal deficits. Absent: facial droop, speech deficit Internal Medicine: Result - Labs CBC & Chem 7: 09/21/16 04:35 09/21/16 04:35 Labs: Short CBC 09/21/16 Range/Units 04:35 WBC 4.1 L D (4.3-11.1) K/mcL Hgb 15.7 H (11.5-15.4) g/dL Hct 47.9 H (35.3-44.9) % Plt Count 217 (140-400) K/mcL Neutrophils # 3.4 (1.6-8.9) K/mcL BMP 09/21/16 04:35 Sodium 134 L Potassium 4.1 Chloride 87 L Carbon Dioxide 38 H BUN 22 H Creatinine 0.55 L Glucose 87 Calcium 9.3 Cardiac Enzymes 09/17/16 Range/Units 04:37 CK-MB (CK-2) 0 (0-4) % - ABG Interpretation ABG results: ABG ABG pH 7.36 pH Units (7.32-7.45) 09/18/16 18:05 ABG pCO2 76 mmHg (35-45) H* 09/18/16 18:05 ABG pO2 61 mmHg (85-104) L 09/18/16 18:05 ABG O2 Saturation 90 % (95-98) L 09/18/16 18:05 Consult Discharge Plan - Plan Referrals: Santino Anderson MD [Primary Care Provider] - 09/25/16 10:00 am - Attending Attestation This document has been at least partially created by [employer] recognition technology by Dr. Tovar. Errors in grammar, wording or other phrases may exist. If errors are found after the documentation is signed, they will be addressed individually in the addendum section of this document when appropriate.
--- NOTE | 2016-09-21 16:01 | Palliative - Consult Note ---
Date of Encounter: 09/21/16 Time of Encounter: 15:15 - Assessment and Plan (1) Anxiety Current Visit: No Status: Chronic Assessment and plan: Will continue low dose Lorazepam PRN. Has utilized x2 last 24 hours. MOnitor (2) Dyspnea Current Visit: Yes Status: Acute Assessment and plan: Treatment continues with steroids/bronchodilators/oxygen/bipap PRN. She has late stage disease and is symptomatic even at rest. Would likely benefit from low dose opioids to assist with breathlessness. Will await her decisions re: d/ c plan and code status prior to beginning this. Qualifiers: Dyspnea type: unspecified Qualified Code(s): R06.00 - Dyspnea, unspecified (3) Counseling regarding advanced care planning and goals of care Current Visit: Yes Status: Acute Assessment and plan: Patient states she lives with /son/DIL/grandchildren, and has Oxygen and nebulizer at home. Discussed goals of care and code status at length. Patient keeps stating she "doesn't know" what she would want done if critically ill. We discussed CPR/intubation/ and ICU care, and options such as tracheostomy and watermaster ventilatory support if she were unable to wean off vent. She verbalized understanding. She is too consider her wishes tonight and I will f/ u at 0900 tomorrow am. She has qualified for bipap and 3B executive secretary social welfare, Josie Remy has been working on setup of this. D/W Dr. Tovar - f/u in am. (4) COPD with acute exacerbation Current Visit: Yes Status: Acute (5) Acute and chronic respiratory failure Current Visit: Yes Status: Acute Qualifiers: Respiratory failure complication: hypoxia and hypercapnia Qualified Code(s) : J96.21 - Acute and chronic respiratory failure with hypoxia; J96.22 - Acute and chronic respiratory failure with hypercapnia Palliative-CN HPI - Data of Consult Consult date: 09/21/16 Requesting Physician: Angela Tovar MD Primary Care Provider: Santino Anderson MD - Consult Narrative History of present illness: Ms. Phoenix is a 61 year old female with a history of end stage COPD who presented with increasing shortness of breath. She states this was getting worse over the last few weeks, and she had went to primary care provider and was started on antibiotics, however, didn't feel she was getting better, so came to ER. She is currently on 3L oxygen at home. She has history of recent hospital stay in Jun, where she sustained pneumothorax after a fall and eventually signed out against medical advice. She was also admitted back in the fall for NSTEMI and respiratory failure. She is currently receiving steroids /oxygen/BiPap support and antibiotics. Upon my visit, she is up in chair with bipap. No visitors or family present. Denies pain or discomfort other than breathlessness. She c/o anxiety, but states Lorazepam is helpful. Appears in mild respiratory distress when speaking. States appetite has been poor sin she has been in hospital. She is on 6 LPM of oxygen today when she is not on bipap. CC: Angela Tovar MD Past Med Surg Social Fam HX - Past Medical History Medical history: asthma, COPD, hypertension Psychiatric history: anxiety - Past Surgical History Surgical History: cataract (Bilateral excision with lens implantation.), cholecystectomy - Social History Smoking Status: Unknown if ever smoked Smokeless Tobacco Status: No Alcohol use: none Drug use: none Medications and Allergies Albuterol Sulfate [Proventil Hfa] 2 puff IH Q4-6H PRN 05/03/16 [History] Aspirin [Lo-Dose Aspirin EC] 81 mg PO DAILY 05/03/16 [History] CloNIDine HCl [Kapvay] 0.1 mg PO BID 05/03/16 [History] ClonazePAM [Klonopin] 0.5 mg PO BID 05/03/16 [History] Ipratropium/Albuterol Neb [Duoneb] 3 ml IH Q6HR 05/03/16 [History] Lisinopril [Zestril] 20 mg PO DAILY 05/03/16 [History] Loratadine [Allergy Relief] 10 mg PO DAILY 05/03/16 [History] Metoprolol XL (24 HR) Succ [Toprol Xl] 50 mg PO DAILY #30 tab.er.24h 05/07/16 [ Rx] Amlodipine [Norvasc] 5 mg PO DAILY 09/16/16 [History] Atorvastatin Calcium [Lipitor] 20 mg PO HS 09/16/16 [History] Allergies Penicillins [PCN] Allergy (Verified 05/03/16 03:46) Rash Sulfa (Sulfonamide Antibiotics) Allergy (Verified 05/03/16 03:46) Rash sulfamethoxazole [From Bactrim] Allergy (Verified 05/03/16 03:46) Hives Telithromycin [From Ketek] Allergy (Verified 05/03/16 03:46) Hives trimethoprim Allergy (Verified 05/03/16 03:46) Hives acetaminophen [From Percocet] Adverse Reaction (Verified 05/03/16 03:46) Nausea Oxycodone [From Percocet] Adverse Reaction (Verified 05/03/16 03:46) Nausea Needs editing Allergy (Uncoded 05/03/16 03:46) Chills All systems: reviewed and no additional remarkable complaints except as stated ( shortness of breath even at rest, generalized weakness,poor appetite) Palliative Care-Exam - Constitutional Vitals: Temp Pulse Resp BP Pulse Ox 96.6 F L 82 15 148/78 94 09/21/16 11:20 09/21/16 11:20 09/21/16 15:36 09/21/16 11:42 09/21/16 15:36 General appearance: Present: thin - Head Head Exam: Present: normal inspection, normocephalic - Eye Eye exam: Present: normal appearance, PERRL - Expanded Respiratory Exam Location: decreased breath sounds: Left, Right, Lower - Cardiovascular Cardiovascular exam: Present: +S1, +S2 - GI/Abdominal Exam GI/Abdominal exam: Present: normal bowel sounds, soft - Neurological Exam Neurological exam: Present: alert, oriented X3, strengths equal and symetr throughout - Skin Skin exam: Present: dry, pallor, warm Internal Medicine - CN: Reslt - Labs CBC & Chem 7: 09/21/16 04:35 09/21/16 04:35 Labs: Short CBC 09/21/16 Range/Units 04:35 WBC 4.1 L D (4.3-11.1) K/mcL Hgb 15.7 H (11.5-15.4) g/dL Hct 47.9 H (35.3-44.9) % Plt Count 217 (140-400) K/mcL Neutrophils # 3.4 (1.6-8.9) K/mcL BMP 09/21/16 04:35 Sodium 134 L Potassium 4.1 Chloride 87 L Carbon Dioxide 38 H BUN 22 H Creatinine 0.55 L Glucose 87 Calcium 9.3 Cardiac Enzymes 09/17/16 Range/Units 04:37 CK-MB (CK-2) 0 (0-4) % - ABG Interpretation ABG results: ABG ABG pH 7.36 pH Units (7.32-7.45) 09/18/16 18:05 ABG pCO2 76 mmHg (35-45) H* 09/18/16 18:05 ABG pO2 61 mmHg (85-104) L 09/18/16 18:05 ABG O2 Saturation 90 % (95-98) L 09/18/16 18:05 Consult Discharge Plan - Plan Referrals: Santino Anderson MD [Primary Care Provider] - 09/25/16 10:00 am Palliative Quality Palliative Quality: Screen for Code Status: Yes, Screen for Goals of Care: Yes, Screen for Pain: Yes, If Pain Regimen Started, Initiate Bowel Regimen: NA, Screen for Nausea/Vomitting: Yes
[2016-09-22] MEDS: methylPREDNISolone 125 MG/2 ML VIAL IVP SCH ×3 (00:03→16:00)
[2016-09-22] MEDS: Ipratropium/Albuterol Neb 3 ML IH SCH ×6 (03:22→15:38)
[2016-09-22] MEDS: *HR* Heparin 5,000 UNIT/ML VIAL SQ SCH ×2 (06:22→15:58)
[2016-09-22] MEDS: Aspirin Enteric Coated 81 MG Tablet PO SCH (07:59)
[2016-09-22] MEDS: Levofloxacin 750 MG/150 ML 750 MG/150 ML BAG IVPB SCH (07:59)
[2016-09-22] MEDS: Metoprolol XL (24 HR) Succ 50 MG TAB.ER.24H PO SCH (07:59)
[2016-09-22] MEDS: Famotidine 20 MG TABLET PO SCH (08:00)
[2016-09-22] MEDS: amLODIPine 5 MG TABLET PO SCH (08:00)
[2016-09-22] MEDS ORDERED: cloNIDine HCl 0.1 MG TABLET PO SCH (09:00)
[2016-09-22] MEDS: Budesonide/Formoterol 160/4.5 MDI IH SCH (09:39)
--- NOTE | 2016-09-22 10:37 | Palliative Progress Note ---
Date of Encounter: 09/22/16 Time of Encounter: 10:00 - Assessment and plan (1) Anxiety Current Visit: No Status: Chronic Assessment and plan: Continue low dose Lorazepam PRN. Utilized x4 last 24 hours. Monitor. (2) Dyspnea Current Visit: Yes Status: Acute Assessment and plan: Continues with shortness of breath with any exertions and utilized bipap frequently. Continues with steroids - has completed 7 day course of atb. Continues with supportive oxygen/bronchodilators/bipap as needed. She is agreeable to hospice care at this point. Will add Roxanol for use at home for breathlessness. Prescription faxed to pharmacy for [facility] to fill. Qualifiers: Dyspnea type: unspecified Qualified Code(s): R06.00 - Dyspnea, unspecified (3) Counseling regarding advanced care planning and goals of care Current Visit: Yes Status: Acute Assessment and plan: Long discussion with pt re: goals of care, prognosis, code status and discharge plan. Discussed typical course of end stage COPD. Patient states that she does not desire heroic measures in event of cardiac arrest and she does not desire intubation or ventilatory support for respiratory failure. She does desire to continue with current interventions including steroids, oxygen, nebs, and bipap support as needed. Code status changed to DNR/DNI and state form completed and signed by patient. Discussed hospice at length, goals and philosophy of managing her disease at home and support with symptom management and she is agreeable to enroll in hospice care. I asked her permission to call and discuss with her family, ( and son), and she refused, stating it was her decision and she would inform them herself. Referral called to [facility], social work specialist also notified. She already has oxygen/nebs in place at home. Prescriptions for Prednisone, Roxanol, Ativan faxed to [facility] for hospice to fill. Hospice team notified she will need steroids tapered. D/W Dr. Woodward. Anticipate d/c later today. (4) COPD with acute exacerbation Current Visit: Yes Status: Acute (5) Acute and chronic respiratory failure Current Visit: Yes Status: Acute Qualifiers: Respiratory failure complication: hypoxia and hypercapnia Qualified Code(s) : J96.21 - Acute and chronic respiratory failure with hypoxia; J96.22 - Acute and chronic respiratory failure with hypercapnia - Time Spent With Patient Total time spent is greater than 50% in coordination of care (as documented) at patient's floor/unit and/or counseling patient: Greater than 35 minutes - Subjective Interval history: Patient up in chair - currently on 5L oxygen. States breathing "about the same - probably won't get any better". Denies pain or discomfort. No family present - Constitutional Vitals: Abnormal lab results WBC 4.1 K/mcL (4.3-11.1) L D 09/21/16 04:35 RBC 5.17 M/mcL (3.82-4.97) H 09/21/16 04:35 Hgb 15.7 g/dL (11.5-15.4) H 09/21/16 04:35 Hct 47.9 % (35.3-44.9) H 09/21/16 04:35 Lymphocytes # 0.5 K/mcL (0.6-4.6) L 09/21/16 04:35 ABG pCO2 76 mmHg (35-45) H* 09/18/16 18:05 ABG pO2 61 mmHg (85-104) L 09/18/16 18:05 ABG HCO3 42.9 mEQ/L (21-27) H 09/18/16 18:05 ABG Total CO2 45.2 mEq/L (20-26) H 09/18/16 18:05 ABG O2 Saturation 90 % (95-98) L 09/18/16 18:05 ABG Base Excess 12.8 mEq/L (-2.0 to 3.0) H 09/18/16 18:05 Sodium 134 mEq/L (136-145) L 09/21/16 04:35 Chloride 87 mEq/L (98-109) L 09/21/16 04:35 Carbon Dioxide 38 mEq/L (19-29) H 09/21/16 04:35 BUN 22 mg/dL (7-20) H 09/21/16 04:35 Creatinine 0.55 mg/dL (0.57-1.11) L 09/21/16 04:35 BUN/Creatinine Ratio 40 (6-26) H 09/21/16 04:35 B-Natriuretic Peptide 101 pg/mL (0-100) H 09/19/16 03:35 General appearance: Present: no acute distress - Respiratory Respiratory exam: Present: decreased breath sounds, CTAB Additional comments: faint expiratory wheezes - Cardiovascular Cardiovascular exam: Present: +S1, +S2 - GI/Abdominal GI/Abdominal exam: Present: normal bowel sounds, soft - Extremities Exam Extremities exam: Present: normal capillary refill, normal inspection - Neurological Exam Neurological exam: Present: alert, oriented X3, strengths equal and symetr throughout - Psychiatric Psychiatric exam: Present: anxious - Skin Skin exam: Present: dry, pallor, warm Palliative Quality Palliative Quality: Screen for Code Status: Yes, Screen for Goals of Care: Yes, Screen for Pain: Yes, If Pain Regimen Started, Initiate Bowel Regimen: NA, Screen for Nausea/Vomitting: Yes Code Status: 09/22/16 09:42 DNR [Resuscitation Status: Active] [RES] Routine Comment: Resuscitation Status: [id number] - Labs CBC & Chem 7: 09/21/16 04:35 09/21/16 04:35 - ABG Interpretation ABG results: ABG ABG pH 7.36 pH Units (7.32-7.45) 09/18/16 18:05 ABG pCO2 76 mmHg (35-45) H* 09/18/16 18:05 ABG pO2 61 mmHg (85-104) L 09/18/16 18:05 ABG O2 Saturation 90 % (95-98) L 09/18/16 18:05 Consult Discharge Plan - Plan Referrals: Santino Anderson MD [Primary Care Provider] - 09/25/16 10:00 am Prescriptions: Morphine Oral CONC [Roxanol] 5 mg PO Q4HR PRN #15 oral.syg PRN Reason: dyspnea/pain LORazepam [Ativan] 0.5 mg PO QID PRN #16 tablet PRN Reason: Anxiety PredniSONE 40 mg PO DAILY #4 tablet
--- NOTE | 2016-09-22 11:21 | Discharge Summary ---
Date of Encounter: 09/22/16 Time of Encounter: 11:19 - Discharge Diagnosis (1) COPD with acute exacerbation Priority: Primary Status: Acute (2) Acute and chronic respiratory failure Priority: Primary Status: Acute Qualifiers: Respiratory failure complication: hypoxia and hypercapnia Qualified Code(s) : J96.21 - Acute and chronic respiratory failure with hypoxia; J96.22 - Acute and chronic respiratory failure with hypercapnia (3) Takotsubo cardiomyopathy Priority: Secondary Status: Chronic (4) Hypertension Priority: Secondary Status: Chronic Qualifiers: Hypertension type: essential hypertension Qualified Code(s): I10 - Essential (primary) hypertension - Discharge Medications Prescriptions: Morphine Oral CONC [Roxanol] 5 mg PO Q4HR PRN #15 oral.syg PRN Reason: dyspnea/pain LORazepam [Ativan] 0.5 mg PO QID PRN #16 tablet PRN Reason: Anxiety Metoprolol XL (24 HR) Succ [Toprol Xl] 100 mg PO DAILY #30 tab.er.24h PredniSONE 40 mg PO DAILY #4 tablet PredniSONE 60 mg PO DAILY #49 tablet Home Medications: Albuterol Sulfate [Proventil Hfa] 2 puff IH Q4-6H PRN 05/03/16 [History] Aspirin [Lo-Dose Aspirin EC] 81 mg PO DAILY 05/03/16 [History] CloNIDine HCl [Kapvay] 0.1 mg PO BID 05/03/16 [History] ClonazePAM [Klonopin] 0.5 mg PO BID 05/03/16 [History] Ipratropium/Albuterol Neb [Duoneb] 3 ml IH Q6HR 05/03/16 [History] Loratadine [Allergy Relief] 10 mg PO DAILY 05/03/16 [History] Amlodipine [Norvasc] 5 mg PO DAILY 09/16/16 [History] Atorvastatin Calcium [Lipitor] 20 mg PO HS 09/16/16 [History] LORazepam [Ativan] 0.5 mg PO QID PRN #16 tablet 09/22/16 [Rx] Metoprolol XL (24 HR) Succ [Toprol Xl] 100 mg PO DAILY #30 tab.er.24h 09/22/16 [ Rx] Morphine Oral CONC [Roxanol] 5 mg PO Q4HR PRN #15 oral.syg 09/22/16 [Rx] PredniSONE 40 mg PO DAILY #4 tablet 09/22/16 [Rx] PredniSONE 60 mg PO DAILY #49 tablet 09/22/16 [Rx] Allergies/Adverse Reactions: Allergies Penicillins [PCN] Allergy (Verified 05/03/16 03:46) Rash Sulfa (Sulfonamide Antibiotics) Allergy (Verified 05/03/16 03:46) Rash sulfamethoxazole [From Bactrim] Allergy (Verified 05/03/16 03:46) Hives Telithromycin [From Ketek] Allergy (Verified 05/03/16 03:46) Hives trimethoprim Allergy (Verified 05/03/16 03:46) Hives acetaminophen [From Percocet] Adverse Reaction (Verified 05/03/16 03:46) Nausea Oxycodone [From Percocet] Adverse Reaction (Verified 05/03/16 03:46) Nausea Needs editing Allergy (Uncoded 05/03/16 03:46) Chills Procedures/tests Complete & Pending: Procedures Performed prior 72 hours Category Date Time Status EV echocardiogram Routine Y 09/20/16 12:08 Completed Date of admission: 09/16/16 16:29 Primary care physician: Santino Anderson MD Consults: 09/18/16 19:24 Consult to Pulmonology [CONS] Routine Consulting Provider: [facility] Reason for Consult: patient on 6LNC, patient requires BIPAP to stay above 85% . Unable to keep saturation above 85% off BIPAP Call Completed: No 09/20/16 09:14 Consult to Occupational Therapy [CONS] Routine Comment: Evaluate, develop and implement POC Consult to Physical Therapy [CONS] Routine Comment: Evaluate, develop and implement POC Consult to Spa Assistant Manager [CONS] Routine Reason for SW Consult: Discharge planning 09/21/16 14:43 Consult to Palliative Care [CONS] Routine Comment: Consulting Provider: Palliative Care [place] Discharging clinician: Boone Woodward Anticipated date of discharge: 09/22/16 - Patient Status Disposition: Hospice - Home Condition: Fair Functional capacity at discharge: independent ambulation Overall status at discharge: patient is not back to baseline - Discharge Instructions Follow Up With: Santino Anderson MD [Primary Care Provider] - 09/25/16 10:00 am Additional Instructions: I recommend follow-up with her primary care provider in the next 3-5 days I recommend completing medications as prescribed - Diet and Activity Activity: increase activity as tolerated Diet: advance to your usual diet Hospital course: Ms. Phoenix is a 61 year old female - Time Spent with Patient Total time spent providing and/or coordinating discharge services: - Constitutional Vitals: Temp Pulse Resp BP Pulse Ox 98.3 F 79 16 150/72 95 09/22/16 07:12 09/22/16 07:12 09/22/16 09:41 09/22/16 07:12 09/22/16 09:41 General appearance: Present: cooperative, A&O X 3, pleasant, answers questions appropriately - Head Head exam: Present: atraumatic, normocephalic - Eye Eye exam: Present: PERRL, conjuntiva pink, sclera anicteric Pupils: Present: PERRL - ENT ENT exam: Present: mucous membranes moist - Neck Neck exam general surgery: Present: supple, trachea midline. Absent: lymphadenopathy - Respiratory Respiratory exam: Present: accessory muscle use, decreased breath sounds, prolonged expiratory phase Additional comments: Patient diminished breath sounds bilateral bilateral expiratory wheeze. - Cardiovascular Cardiovascular exam: Present: RRR, +S1, +S2. Absent: diastolic murmur, gallop, rubs, systolic murmur - GI/Abdominal GI/Abdominal exam: Present: normal bowel sounds, soft, no peritoneal signs. Absent: distended, tenderness - Extremities Exam Extremities exam: Present: warm, radial pulses palpable and symetrical. Absent : calf tenderness, cyanotic - Psychiatric Psychiatric exam: Present: normal affect, normal mood
--- NOTE | 2016-09-22 13:02 | Event Note ---
Date of Encounter: 09/22/16 Time of Encounter: 13:00 Hospice medical authorization specialist certification of terminal illness: Hospice benefit. Start: 09/22/2016 Hospice benefit. In: +90 days Palliative performance scale: 30% History: Patient with severe COPD and hypoxemic hypercapnic dyspnea. PCO2 is in the 70s E patient does not wish to have any further aggressive therapy, and with progressive shortness of breath increasing dyspnea on exertion and a declining performance level as well as the PCO2 in the 70s I find that These findings support a life expectancy of 6 months or less. I attest that I have compose the above narrative based on my review of the patient's medical records, and or on my examination of the patient. Dipesh Pelayo M.D. Associate emergency medical services coordinator. [facility]
[2016-09-22 15:22] VITALS: BP 149/74
--- NOTE | 2016-09-22 17:34 | Physician Discharge Referral ---
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 For more information, call the [place] Tobacco Quit Line at 7-093-ZJIS-NOW. - Diet/Nutrition Diet/Nutrition Orders: Regular - Activity Activity Orders: Up ad james - Services Needed Following services are medically necessary services: Nursing, Home Health Aide - Transfer Medications Prescriptions: Morphine Oral CONC [Roxanol] 5 mg PO Q4HR PRN #15 oral.syg PRN Reason: dyspnea/pain LORazepam [Ativan] 0.5 mg PO QID PRN #16 tablet PRN Reason: Anxiety Metoprolol XL (24 HR) Succ [Toprol Xl] 100 mg PO DAILY #30 tab.er.24h PredniSONE 40 mg PO DAILY #4 tablet PredniSONE 60 mg PO DAILY #49 tablet Home Medications: Albuterol Sulfate [Proventil Hfa] 2 puff IH Q4-6H PRN 05/03/16 [History] Aspirin [Lo-Dose Aspirin EC] 81 mg PO DAILY 05/03/16 [History] CloNIDine HCl [Kapvay] 0.1 mg PO BID 05/03/16 [History] ClonazePAM [Klonopin] 0.5 mg PO BID 05/03/16 [History] Ipratropium/Albuterol Neb [Duoneb] 3 ml IH Q6HR 05/03/16 [History] Loratadine [Allergy Relief] 10 mg PO DAILY 05/03/16 [History] Amlodipine [Norvasc] 5 mg PO DAILY 09/16/16 [History] Atorvastatin Calcium [Lipitor] 20 mg PO HS 09/16/16 [History] LORazepam [Ativan] 0.5 mg PO QID PRN #16 tablet 09/22/16 [Rx] Metoprolol XL (24 HR) Succ [Toprol Xl] 100 mg PO DAILY #30 tab.er.24h 09/22/16 [ Rx] Morphine Oral CONC [Roxanol] 5 mg PO Q4HR PRN #15 oral.syg 09/22/16 [Rx] PredniSONE 40 mg PO DAILY #4 tablet 09/22/16 [Rx] PredniSONE 60 mg PO DAILY #49 tablet 09/22/16 [Rx] Allergies/Adverse Reactions: Allergies Penicillins [PCN] Allergy (Verified 05/03/16 03:46) Rash Sulfa (Sulfonamide Antibiotics) Allergy (Verified 05/03/16 03:46) Rash sulfamethoxazole [From Bactrim] Allergy (Verified 05/03/16 03:46) Hives Telithromycin [From Ketek] Allergy (Verified 05/03/16 03:46) Hives trimethoprim Allergy (Verified 05/03/16 03:46) Hives acetaminophen [From Percocet] Adverse Reaction (Verified 05/03/16 03:46) Nausea Oxycodone [From Percocet] Adverse Reaction (Verified 05/03/16 03:46) Nausea Needs editing Allergy (Uncoded 05/03/16 03:46) Chills Certification: Further, I certify that my clinical findings support that this patient is homebound (i.e. absences from home require considerable and taxing effort and are for medical reasons or holiness services or infrequently or short duration when for other reasons) because: Homebound Reason: Severity of cardiac or pulmonary status limits activity tolerance Attestation: My signature below is to certify that this patient is under my care and that I, or nurse practitioner, or a physician's assistant program director working with me, has a face-to -face encounter with this patient.
== END 2016-09-22 15:14 | disposition hospice, home (50) | DRG 190 ==
LOC: EMEROO 12:51 → 3BNU 12:51 → SUATTDRO 16:29 → 3BNU 17:32
PROVIDERS: ADMIT Internal Medicine; ATTEND Internal Medicine